=== PATIENT | male | born 1940 ===

== ENCOUNTER 2017-06-23 17:22 | Inpatient (IN) | payer MEDICARE, OTHER ==
[2017-06-23] MEDS ORDERED: Albuterol-Ipratrop 3 mg / 0.5 (3 ml) UD ONE (17:37)
[2017-06-23] MEDS ORDERED: Albuterol-Ipratrop 3 mg / 0.5 (3 ml) UD INH STA (17:47)
[2017-06-23 17:54] LABS: ABG ALLEN TEST YES; ARTERIAL BLOOD GAS HCO3 23.8 mmol/L (21-28); ARTERIAL BLOOD GAS O2 SAT 100.3 % (95-98); ARTERIAL BLOOD GAS PCO2 35 mm/Hg (35-45); ARTERIAL BLOOD GAS PH 7.42 (7.35-7.45); ARTERIAL BLOOD GAS PO2 81 mm/Hg (80-100); ARTERIAL BLOOD GAS TCO2 23.8 mmol/L (22-28)
--- NOTE | 2017-06-23 17:56 | ED PDOC ---
HPI: SOB/CHF/COPD Time Seen by Provider: 06/23/17 17:30 Chief Complaint (Nursing): Respiratory Distress Chief Complaint (Provider): Cough and Shortness of Breath History Per: Patient History/Exam Limitations: no limitations Onset/Duration Of Symptoms: Mins Current Symptoms Are (Timing): Still Present Additional Complaint(s): 76 year old male with a past medical history of hyperlipidemia, hypertension and diabetes presents to the ED complaining of worsening cough and shortness of breath x3 days. The patient states that his abdomen is now getting sore from the constant coughing. He states that his shortness of breath is worse with exertion. Denies fever, hemoptysis, rhinnorhea, chest pain and leg swelling. Patient does note some phlegm that is green in color. PMD: Samuel Pritchett Past Medical History Reviewed: Historical Data, Nursing Documentation, Vital Signs Vital Signs: Last Vital Signs Temp 97.5 F L 06/23/17 17:27 Pulse 73 06/23/17 20:04 Resp 27 H 06/23/17 20:04 BP 107/67 06/23/17 20:04 Pulse Ox 99 06/23/17 20:04 - Medical History PMH: Atrial Fibrillation (has AICD), CAD, Cardia Arrhythmia, CHF, Diabetes, HTN , Hypercholesterolemia Denies: HIV, Chronic Kidney Disease - Surgical History Surgical History: Pacemaker (2001) Other surgeries: exploratory laparotomy; ankle surgery - Family History Family History: States: Hypertension - Home Medications Home Medications: Ambulatory Orders Medication Instructions Recorded Dronedarone HCl [Multaq] 400 mg PO BID 09/29/14 Ferrous Sulfate 325 mg PO BID 09/29/14 Linagliptin [Tradjenta] 5 mg PO DAILY 09/29/14 Enalapril Maleate [Vasotec] 2.5 mg PO DAILY #0 tab 09/30/14 Folic Acid 1 tab PO DAILY 09/19/15 Aspirin [Ecotrin] 81 mg PO DAILY 08/30/16 Carvedilol [Coreg] 12.5 mg PO Q12H 08/30/16 Levocetirizine Dihydrochloride 5 mg PO DAILY 08/30/16 [Xyzal] [id number] Ethyl Esters 1 GM 2 gm PO BID 08/30/16 [Lovaza] Furosemide [Lasix] 20 mg PO BID #0 08/31/16 - Allergies Allergies/Adverse Reactions: Allergies Allergy/AdvReac Type Severity Reaction Status Date / Time No Known Allergies Allergy Verified 08/30/16 09:10 Review of Systems ROS Statement: Except As Marked, All Systems Reviewed And Found Negative (and as pe rHPI) Constitutional: Negative for: Fever ENT: Negative for: Nose Discharge Cardiovascular: Negative for: Chest Pain Respiratory: Positive for: Cough (w/ green phlegm), Shortness of Breath. Negative for: Hemoptysis Physical Exam - Reviewed Nursing Documentation Reviewed: Yes Vital Signs Reviewed: Yes - Physical Exam Appears: Positive for: Non-toxic, In Acute Distress Head Exam: Positive for: ATRAUMATIC, NORMOCEPHALIC Skin: Positive for: Warm, Dry, Pallor Eye Exam: Positive for: EOMI, PERRL ENT: Positive for: Pharynx Is (clear with tacky mucus membranes) Neck: Positive for: Painless ROM, Supple Cardiovascular/Chest: Positive for: Irregularly Irregular. Negative for: Murmur Respiratory: Positive for: Decreased Breath Sounds (bilateral bases), Accessory Muscle Use, Wheezing, Respiratory Distress Gastrointestinal/Abdominal: Positive for: Bowel Sounds, Soft. Negative for: Tenderness Back: Positive for: Normal Inspection. Negative for: Decreased ROM Extremity: Positive for: Normal ROM. Negative for: Pedal Edema, Calf Tenderness Lymphatic: Negative for: Adenopathy Neurologic/Psych: Positive for: Alert. Negative for: Motor/Sensory Deficits - Laboratory Results Result Diagrams: 06/23/17 18:39 06/23/17 18:39 - ECG ECG Rhythm: Positive for: Atrial Fibrillation, Atrial Paced (intermittently) O2 Sat by Pulse Oximetry: 100 (RA) Pulse Ox Interpretation: Normal - Radiology X-Ray Interpretation: Infiltrates (RUL), Cardiomegaly - Progress Condition: Improving,but remains with symptoms - Physician Consult Information Physician Contacted: Roni Manzanares - Critical Care Total Time (In Min): 30 Documented Critical Care: Time excludes all time spent performint seperately billable procedures Medical Decision Making Medical Decision Makin Initial Impression 76 y/o male presenting with shortness of breath and cough Differentials: ACS, CHF, Pneumonia, Bronchitis, Anemia. Initial Plan: * Type and screen * ABG * EKG * B-Type Natriuretic * Magnesium * CMP * Phosphorous * Troponin * Troponin Q8H * CBC * Partial thromboplastin * Prothrombin Timesdf * CXR Albuterol 9mL INH * Solu-Medrol 125mg IVP * Blood Culture * Accucheck * Peak Flow * Influenza A B * Reevaluation 1924 On reeval pt is feeling a little better after nebulizer treatment and solumedrol. coughed up large amount of yellow phlegm while in ER. Lab work indicates acute renal insufficiency and hyponatremia and markedly elevated BNP Daughter in the ER who now reports that the patient was seen by his PMD 1 week ago and told that his potassium was high at that time he was given a liquid medication to decrease the potassium (? kayexalate) however patient was not told he had any new kidney dysfunction. Patient needs to be hospitalized for pneumonia and placed in the ICU for multiple comorbidities. Discussed with Dr. Pelaez (hospitalist) Documented by Charlotte Sauceda acting as a scribe for Romina Caba MD. All medical record entries made by the Scribe were at my direction and personally dictated by me. I have reviewed the chart and agree that the record accurately reflects my personal performance of the history, physical exam, medical decision making, and the department course for this patient. I have also personally directed, reviewed, and agree with the discharge instructions and disposition. Disposition - Clinical Impression Clinical Impression: Anemia, CHF exacerbation, Renal insufficiency, Pneumonia Counseled Patient/Family Regarding: Studies Performed, Diagnosis - Disposition Disposition Time: 18:00 Condition: CRITICAL - Pt Status Changed To: Hospital Disposition Of: Inpatient - Admit Certification Admit to Inpatient:: After my assessment, the patient will require hospitalization for at least two midnights. This is because of the severity of symptoms shown, intensity of services needed, and/or the medical risk in this patient being treated as an outpatient. - POA Present On Arrival: None
[2017-06-23] MEDS ORDERED: cefTRIAXone IV 1 gm in Dextros 50 ML IVPB ONE (18:40)
[2017-06-23] MEDS ORDERED: cefTRIAXone IV 1 gm in Dextros 50 ML IVPB STA (18:45)
[2017-06-23 18:46] LABS: BASO % 0.2 % (0.0-2.0); EOS % 0.4 % (0.0-4.0); LYMPH # 0.5 K/uL (1.0-4.3); MEAN CELL VOLUME 90.4 fl (80.0-94.0); MEAN CORPUSCULAR HEMOGLOBIN 29.7 pg (27.0-31.0); MEAN CORPUSCULAR HGB CONC 32.9 g/dL (33.0-37.0); MEAN PLATELET VOLUME 11.5 fl (7.2-11.7); MONO % 10.4 % (0.0-10.0); NEUT # 8.1 K/uL (1.8-7.0); NRBC % 0.2 % (0.0-0.0); PLATELET COUNT 140 K/uL (130-400); RBC 3.36 Mil/uL (4.40-5.90); RED CELL DISTRIBUTION WIDTH 14.5 % (11.5-14.5); WHITE BLOOD COUNT 9.7 K/uL (4.8-10.8)
[2017-06-23] MEDS ORDERED: Sodium Chloride 0.9% 250 ML IV STA (18:47)
[2017-06-23 19:05] LABS: PROTHROMBIN TIME 14.7 Seconds (9.8-13.1)
[2017-06-23 19:06] LABS: INR 1.3 (0.9-1.2)
[2017-06-23 19:14] LABS: TROPONIN I 0.048 ng/mL (0.00-0.120)
[2017-06-23 19:15] LABS: ALB/GLOB RATIO 1.1 (1.0-2.1); ALBUMIN 3.8 g/dL (3.5-5.0); CALCIUM 8.8 mg/dL (8.4-10.2); MAGNESIUM 2.5 MG/DL (1.6-2.3)
[2017-06-23 19:36] LABS: LYMPHOCYTE 4 % (20-50); MONOCYTE 11 % (0-10); NEUTROPHIL 85 % (42-75); TOTAL CELLS COUNTED 100
[2017-06-23 19:37] LABS: HYPOCHROMIC SLIGHT; PLATELET ESTIMATE NORMAL (NORMAL)
[2017-06-23 19:38] LABS: POLYCHROMIC SLIGHT; TARGET CELLS SLIGHT
[2017-06-23] MEDS ORDERED: Sodium Chloride 3% for Inhalation 4 ML VIAL.NEB IH PRN (20:44)
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
[2017-06-23] MEDS: Sodium Chloride 0.9% 1,000 ML IV SCH (22:00)
--- NOTE | 2017-06-23 23:24 | PCM.PROC ---
Procedures Attestation:: I certify that I have explained the specified Operation(s) or Procedure(s), risks, benefits and reasonable alternatives to the Patient and/or other person responsible. The opportunity was given to ask questions and all questions answered - Central Line Placement Right Femoral Triple Lumen Catheter Aseptic technique was employed throughout the procedure: Hand Hygiene done prior to procedure, Full sterile barriers (mask, hair cover, sterile gown, sterile gloves), Full body sterile drape, Chloraprep Antiseptic: 2 minute prep for Femoral CVP Time Out Performed: No Pt. Placed on Pulse Ox Monitor: Yes Central Line Prep: Chlorhexidine-Alcohol Combination Local Anesthesia Used: Lidocaine 1% Amount of Anesthesia Used (mls): 5 Central Line Lumen Inserted: triple Central Line Length: 20 cm Post Procedure: Sutured in Place, Sterile Dressing Applied Secured by: Suture Post procedure dressing: Clear vapor permeable Post Procedure X-Ray: No Patient Tolerated Procedure: Well, No Complications Immediate Complications: None
--- NOTE | 2017-06-23 23:36 | CP.PCM.PN ---
Subjective - Date & Time of Evaluation Date of Evaluation: 06/23/17 Time of Evaluation: 23:36 - Subjective Subjective: Patient admitted with acute on chronic CHF now with BP 70/36mmHg and HR of 86/ min He is awake alert with SOB, no chest pain. -Lung with diffuse inspiratory rales at both lung [place] I&P #. Cardiogenic Shock with Acute on chronic CHF - Start Dobutamine Drip - Will add Lasix when the BP increases - continue present treatment - A Femoral TLC will be placed for the administration of the Dobutrex Critical care time 10 minutes Joshua Patterson MD Objective - Vital Signs/Intake and Output Vital Signs (last 24 hours): Temp Pulse Resp BP Pulse Ox 97.5 F L 73 27 H 107/67 100 06/23/17 17:27 06/23/17 20:04 06/23/17 20:04 06/23/17 20:04 06/23/17 22:50 - Medications Medications: Current Medications Acetaminophen (Tylenol 325mg Tab) 650 mg PO Q6H PRN PRN Reason: Pain, Mild (1-3) Acetaminophen (Tylenol 325mg Tab) 650 mg PO Q6H PRN PRN Reason: Fever >100.4 F Albuterol/Ipratropium (Duoneb 3 Mg/0.5 Mg (3 Ml) Ud) 3 ml INH Q6H [facility] Aspirin (Ecotrin) 81 mg PO DAILY [facility] Heparin Sodium (Porcine) (Heparin) 5,000 units SC Q8 DENNIS PRN Reason: Protocol Azithromycin 500 mg/ Sodium (Chloride) 250 mls @ 125 mls/hr IVPB DAILY [facility] Sodium Chloride (Sodium Chloride 0.9%) 1,000 mls @ 70 mls/hr IV .[id number] [facility] Last Admin: 06/23/17 22:00 Dose: 70 mls/hr Ceftriaxone Sodium 1 gm/ (Sodium Chloride) 100 mls @ 100 mls/hr IVPB DAILY [facility] PRN Reason: Protocol Dobutamine HCl/Dextrose (Dobutamine/Dextrose 5% 500mg/250ml) 500 mg in 250 mls @ 6.464 mls/hr IV .Q24H DENNIS; 2.5 MCG/KG/MIN PRN Reason: Protocol Loratadine (Claritin) 10 mg PO DAILY [facility] Methylprednisolone (Solu-Medrol) 60 mg IV 0100,0900,1700 [facility] Pantoprazole Sodium (Protonix Ec Tab) 40 mg PO DAILY [facility] - Labs Labs: 06/23/17 18:39 06/23/17 18:39 PT 14.7 Seconds (9.8-13.1) H 06/23/17 18:39 INR 1.3 (0.9-1.2) H 06/23/17 18:39 APTT 25.0 Seconds (25.6-37.1) L 06/23/17 18:39
[2017-06-23] MEDS: DOBUTamine 500mg/250ml D5W 500 MG/250 ML BAG IV SCH (23:38)
[2017-06-24] MEDS ORDERED: methylPREDNISolone 60 MG in Sodium Chloride 0.9% 50 ML IVPB SCH (01:00)
[2017-06-24] MEDS: Albuterol-Ipratrop 3 mg / 0.5 (3 ml) UD INH SCH ×4 (01:05→20:16)
[2017-06-24 06:59] LABS: HEMOGLOBIN 9.5 g/dL (12.0-18.0); MEAN CELL VOLUME 91.5 fl (80.0-94.0); MEAN CORPUSCULAR HEMOGLOBIN 29.4 pg (27.0-31.0); MEAN CORPUSCULAR HGB CONC 32.2 g/dL (33.0-37.0); RBC 3.23 Mil/uL (4.40-5.90); RED CELL DISTRIBUTION WIDTH 14.3 % (11.5-14.5)
[2017-06-24 07:07] LABS: CALCIUM 8.3 mg/dL (8.4-10.2); MAGNESIUM 2.5 MG/DL (1.6-2.3)
[2017-06-24] MEDS: Pantoprazole 40 mg EC Tab PO SCH (08:26)
[2017-06-24] MEDS ORDERED: Azithromycin 500 MG in Sodium Chloride 0.9% 250 ML IVPB SCH (09:00)
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
--- NOTE | 2017-06-24 11:01 | CP.PCM.PN ---
Subjective - Date & Time of Evaluation Date of Evaluation: 06/24/17 Time of Evaluation: 10:45 - Subjective Subjective: No fever Hypotensive- on Dobutamine drip SOB better + cough denies CP no abd pain Objective - Vital Signs/Intake and Output Vital Signs (last 24 hours): Temp Pulse Resp BP Pulse Ox 97.8 F 93 H 19 92/52 L 93 L 06/24/17 08:00 06/24/17 10:00 06/24/17 10:00 06/24/17 10:00 06/24/17 10:00 Intake and Output: 06/24/17 06/24/17 06:59 18:59 Intake Total 575 550 Output Total 150 Balance 575 400 - Medications Medications: Current Medications Acetaminophen (Tylenol 325mg Tab) 650 mg PO Q6H PRN PRN Reason: Pain, Mild (1-3) Acetaminophen (Tylenol 325mg Tab) 650 mg PO Q6H PRN PRN Reason: Fever >100.4 F Albuterol/Ipratropium (Duoneb 3 Mg/0.5 Mg (3 Ml) Ud) 3 ml INH Q6H [facility] Last Admin: 06/24/17 07:21 Dose: 3 ml Aspirin (Ecotrin) 81 mg PO DAILY [facility] Last Admin: 06/24/17 08:27 Dose: 81 mg Heparin Sodium (Porcine) (Heparin) 5,000 units SC Q8 [facility] PRN Reason: Protocol Last Admin: 06/24/17 08:27 Dose: 5,000 units Azithromycin 500 mg/ Sodium (Chloride) 250 mls @ 125 mls/hr IVPB DAILY [facility] Sodium Chloride (Sodium Chloride 0.9%) 1,000 mls @ 70 mls/hr IV .[id number] [facility] Last Admin: 06/23/17 22:00 Dose: 70 mls/hr Ceftriaxone Sodium 1 gm/ (Sodium Chloride) 100 mls @ 100 mls/hr IVPB DAILY [facility] PRN Reason: Protocol Dobutamine HCl/Dextrose (Dobutamine/Dextrose 5% 500mg/250ml) 500 mg in 250 mls @ 6.464 mls/hr IV .Q24H [facility]; 2.5 MCG/KG/MIN PRN Reason: Protocol Last Titration: 06/24/17 05:00 Dose: 5 mcg/kg/min, 12.927 mls/hr Loratadine (Claritin) 10 mg PO DAILY [facility] Last Admin: 06/24/17 08:28 Dose: 10 mg Methylprednisolone (Solu-Medrol) 60 mg IV 0100,0900,1700 [facility] Last Admin: 06/24/17 08:29 Dose: 60 mg Pantoprazole Sodium (Protonix Ec Tab) 40 mg PO DAILY [facility] Last Admin: 06/24/17 08:26 Dose: 40 mg - Labs Labs: 06/24/17 06:00 06/24/17 06:00 PT 14.7 Seconds (9.8-13.1) H 06/23/17 18:39 INR 1.3 (0.9-1.2) H 06/23/17 18:39 APTT 25.0 Seconds (25.6-37.1) L 06/23/17 18:39 - Constitutional Appears: No Acute Distress, Chronically Ill - Head Exam Head Exam: NORMAL INSPECTION, NORMOCEPHALIC - Eye Exam Eye Exam: EOMI, Normal appearance Pupil Exam: NORMAL ACCOMODATION - ENT Exam ENT Exam: Mucous Membranes Moist, Normal External Ear Exam - Neck Exam Neck Exam: Full ROM. absent: Meningismus - Respiratory Exam Respiratory Exam: Rales, Rhonchi. absent: Wheezes, Respiratory Distress - Cardiovascular Exam Cardiovascular Exam: REGULAR RHYTHM, +S1, +S2 - GI/Abdominal Exam GI & Abdominal Exam: Soft, Normal Bowel Sounds. absent: Tenderness - Extremities Exam Extremities Exam: Full ROM, Normal Capillary Refill. absent: Calf Tenderness, Pedal Edema - Back Exam Back Exam: Full ROM. absent: CVA tenderness (L), CVA tenderness (R) - Neurological Exam Neurological Exam: Alert, Awake, CN II-XII Intact, Oriented x3 Neuro motor strength exam: Left Upper Extremity: 5, Right Upper Extremity: 5, Left Lower Extremity: 5, Right Lower Extremity: 5 - Psychiatric Exam Psychiatric exam: Normal Affect, Normal Mood - Skin Skin Exam: Dry, Normal Color, Warm Assessment and Plan - Assessment and Plan (Free Text) Assessment: This is a 75 year old male with a pmh of CAD, severe dilated cardiomyopathy with a EF of 15%, s/p AICD placement, DM, HTN, who has been having a productive cough of greenish brown sputum x 1 week, with progressively worsening dyspnea on exertion and lethargy. He felt more short of breath even at rest and so the patient was brought to the ED. In the ED, he was found to be dyspneic although was not hypoxic. His BP was on the low side, high 90's systolic. Laboratory values reveal Hg 10.0, Neutrophil count of 8.1, WBC of 9.7 , Sodium of 129, Cl of 96, BUN of 82, Cr of 2.9 with a GFR of 21. Of note, his previous renal function on 08/31/2016 was BUN/CR 30/1.6 respectively with a GFR of 51. The patient admits to decreased po fluid intake over the past week. BNP is [id number], markedly elevated. Troponin level WNL at 0.0480. CXR today reveals RUL infiltrate consistent with pneumonia. Due to his borderline hypotension with concern for sepsis and pneumonia in the setting of severe dilated cardiomyopathy, the patient is to be admitted to ICU for close monitoring and IV antibiotics, 1) Sepsis due to RUL CAP - Azithromycin/Rocephin for abx coverage of CAP - Close monitoring of vitals - BP stable at this time - Tylenol PRN for fever - F/u sputum, BCX 2) Dilated cardiomyopathy - Dobutamine drip started - Consultation with Dr. Manzanares for cardiology - EKG shows sinus arrhythmia with nonspecific ST and T wave changes in lateral leads, incomplete LBBB - Holding Multaq for now due to PATRICIA - Holding Coreg and Enalapril due to hypotension; will restart when BP improved - Continue ASA 3) Acute COPD exacerbation - Duonebs q6h ATC - Steroids, decrease to 40 mg IVPB q 8 hours - Nasal cannula 2 L PRN 4. DM Type II Acuchecks with Regular insulin sliding scale AC+HS - Monitor, alvaro while on steroids - start Levemir 10 units qhs 5) Acute worsening of preexisting CKD stage IIIA CKD prob due to prerenal azotemia -pt has low BP, also need to r/o Multaq as cause of worsening renal fxn... hold for now - Nephrology consultation 6) DVT prophylaxis - Heparin 5000 units TID SC
--- NOTE | 2017-06-24 11:11 | CARD ---
APPROVED REPORT EKG Measurement Heart [id number] <Conclusion> Atrial fibrillation Left bundle branch block Abnormal ECG
[2017-06-24] MEDS: Azithromycin 500 MG in Sodium Chloride 0.9% 250 ML IVPB SCH (11:43)
--- NOTE | 2017-06-24 13:33 | RAD ---
HISTORY: sob COMPARISON: 08/30/2016 FINDINGS: LUNGS: No infiltrate. PLEURA: No significant pleural effusion identified, no pneumothorax apparent. CARDIOVASCULAR: Mild cardiomegaly. AICD. No congestive change. OSSEOUS STRUCTURES: No significant abnormalities. VISUALIZED UPPER ABDOMEN: Normal. OTHER FINDINGS: None. IMPRESSION: No acute infiltrate.
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
[2017-06-24] MEDS: MethylPREDNISolone 40 mg Vial IV SCH (16:49)
[2017-06-24] MEDS: Insulin Lispro (humaLOG) 100 Units/ml Inj SC SCH ×2 (16:50→21:57)
[2017-06-24] MEDS: DOBUTamine 500mg/250ml D5W 500 MG/250 ML BAG IV SCH (20:00)
[2017-06-24] MEDS ORDERED: Insulin Detemir 100 Units/ml Inj SC SCH (22:00)
[2017-06-25] MEDS: MethylPREDNISolone 40 mg Vial IV SCH ×3 (00:43→17:05)
[2017-06-25] MEDS: Sodium Chloride 0.9% 1,000 ML IV SCH (00:44)
[2017-06-25] MEDS: Albuterol-Ipratrop 3 mg / 0.5 (3 ml) UD INH SCH ×2 (01:26→20:09)
[2017-06-25] MEDS: DOBUTamine 500mg/250ml D5W 500 MG/250 ML BAG IV SCH ×3 (02:39→21:33)
[2017-06-25] MEDS: Insulin Lispro (humaLOG) 100 Units/ml Inj SC SCH ×4 (06:29→21:40)
[2017-06-25 06:55] LABS: BASO % 0.1 % (0.0-2.0); HEMOGLOBIN 9.3 g/dL (12.0-18.0); LYMPH # 0.2 K/uL (1.0-4.3); LYMPH % 2.6 % (20.0-40.0); MEAN CELL VOLUME 88.7 fl (80.0-94.0); MEAN CORPUSCULAR HEMOGLOBIN 30.1 pg (27.0-31.0); MEAN CORPUSCULAR HGB CONC 33.9 g/dL (33.0-37.0); MEAN PLATELET VOLUME 11.1 fl (7.2-11.7); MONO # 0.5 K/uL (0.0-0.8); MONO % 5.5 % (0.0-10.0); NEUT # 8.3 K/uL (1.8-7.0); NEUT % 91.8 % (50.0-75.0); NRBC % 0.2 % (0.0-0.0); PLATELET COUNT 137 K/uL (130-400); RBC 3.08 Mil/uL (4.40-5.90); RED CELL DISTRIBUTION WIDTH 14.2 % (11.5-14.5); WHITE BLOOD COUNT 9.1 K/uL (4.8-10.8)
[2017-06-25 07:19] LABS: ALB/GLOB RATIO 0.9 (1.0-2.1); ALBUMIN 3.3 g/dL (3.5-5.0); CALCIUM 8.3 mg/dL (8.4-10.2)
[2017-06-25] MEDS: Pantoprazole 40 mg EC Tab PO SCH (08:19)
[2017-06-25 09:54] LABS: BANDS 2 % (0-2); LYMPHOCYTE 1 % (20-50); MONOCYTE 7 % (0-10); NEUTROPHIL 90 % (42-75); PLATELET ESTIMATE NORMAL (NORMAL); TOTAL CELLS COUNTED 100
[2017-06-25 09:55] LABS: HYPOCHROMIC SLIGHT; LARGE PLATELETS PRESENT; OVALOCYTES SLIGHT; SCHISTOCYTES SLIGHT; TEARDROP CELLS SLIGHT
[2017-06-25] MEDS: Azithromycin 500 MG in Sodium Chloride 0.9% 250 ML IVPB SCH (10:06)
--- NOTE | 2017-06-25 10:51 | CP.PCM.PN ---
Subjective - Date & Time of Evaluation Date of Evaluation: 06/25/17 Time of Evaluation: 10:45 - Subjective Subjective: No fever still with episodes of Hypotension - on Dobutamine drip still with cough SOB better no CP no palpitation no abd pain Objective - Vital Signs/Intake and Output Vital Signs (last 24 hours): Temp Pulse Resp BP Pulse Ox 97.7 F 83 17 88/47 L 96 06/25/17 08:00 06/25/17 10:00 06/25/17 10:00 06/25/17 10:00 06/25/17 10:00 Intake and Output: 06/25/17 06/25/17 06:59 18:59 Intake Total 442 628 Output Total 400 Balance 42 628 - Medications Medications: Current Medications Acetaminophen (Tylenol 325mg Tab) 650 mg PO Q6H PRN PRN Reason: Pain, Mild (1-3) Acetaminophen (Tylenol 325mg Tab) 650 mg PO Q6H PRN PRN Reason: Fever >100.4 F Albuterol/Ipratropium (Duoneb 3 Mg/0.5 Mg (3 Ml) Ud) 3 ml INH Q6H [facility] Last Admin: 06/25/17 01:26 Dose: 3 ml Aspirin (Ecotrin) 81 mg PO DAILY [facility] Last Admin: 06/25/17 10:06 Dose: 81 mg Heparin Sodium (Porcine) (Heparin) 5,000 units SC Q8 [facility] PRN Reason: Protocol Last Admin: 06/25/17 08:19 Dose: 5,000 units Azithromycin 500 mg/ Sodium (Chloride) 250 mls @ 125 mls/hr IVPB DAILY [facility] Last Admin: 06/25/17 10:06 Dose: 125 mls/hr Sodium Chloride (Sodium Chloride 0.9%) 1,000 mls @ 70 mls/hr IV .[id number] [facility] Last Admin: 06/25/17 00:44 Dose: Not Given Ceftriaxone Sodium 1 gm/ (Sodium Chloride) 100 mls @ 100 mls/hr IVPB DAILY [facility] PRN Reason: Protocol Last Admin: 06/25/17 08:20 Dose: 100 mls/hr Dobutamine HCl/Dextrose (Dobutamine/Dextrose 5% 500mg/250ml) 500 mg in 250 mls @ 6.464 mls/hr IV .Q24H [facility]; 2.5 MCG/KG/MIN PRN Reason: Protocol Last Titration: 06/25/17 10:37 Dose: 14 mcg/kg/min, 36.197 mls/hr Insulin Detemir (Levemir) 10 units SC HS [facility] Last Admin: 06/24/17 21:55 Dose: 10 u Insulin Human Lispro (Humalog) 0 units SC ACHS [facility] PRN Reason: Protocol Last Admin: 06/25/17 06:29 Dose: 4 u Loratadine (Claritin) 10 mg PO DAILY [facility] Last Admin: 06/25/17 08:19 Dose: 10 mg Methylprednisolone (Solu-Medrol) 40 mg IV 0100,0900,1700 [facility] Last Admin: 06/25/17 08:19 Dose: 40 mg Pantoprazole Sodium (Protonix Ec Tab) 40 mg PO DAILY [facility] Last Admin: 06/25/17 08:19 Dose: 40 mg - Labs Labs: 06/25/17 06:00 06/25/17 06:00 PT 14.7 Seconds (9.8-13.1) H 06/23/17 18:39 INR 1.3 (0.9-1.2) H 06/23/17 18:39 APTT 25.0 Seconds (25.6-37.1) L 06/23/17 18:39 - Constitutional Appears: No Acute Distress, Chronically Ill - Head Exam Head Exam: NORMAL INSPECTION, NORMOCEPHALIC - Eye Exam Eye Exam: EOMI, Normal appearance Pupil Exam: NORMAL ACCOMODATION - ENT Exam ENT Exam: Mucous Membranes Moist, Normal External Ear Exam - Neck Exam Neck Exam: Full ROM. absent: Meningismus - Respiratory Exam Respiratory Exam: Rales, Rhonchi. absent: Wheezes, Respiratory Distress - Cardiovascular Exam Cardiovascular Exam: REGULAR RHYTHM, +S1, +S2 - GI/Abdominal Exam GI & Abdominal Exam: Soft, Normal Bowel Sounds. absent: Tenderness - Extremities Exam Extremities Exam: Full ROM, Normal Capillary Refill. absent: Calf Tenderness, Pedal Edema - Back Exam Back Exam: Full ROM. absent: CVA tenderness (L), CVA tenderness (R) - Neurological Exam Neurological Exam: Alert, Awake, CN II-XII Intact, Oriented x3 Neuro motor strength exam: Left Upper Extremity: 5, Right Upper Extremity: 5, Left Lower Extremity: 5, Right Lower Extremity: 5 - Psychiatric Exam Psychiatric exam: Normal Affect, Normal Mood - Skin Skin Exam: Dry, Normal Color, Warm Assessment and Plan - Assessment and Plan (Free Text) Assessment: This is a 75 year old male with a pmh of CAD, severe dilated cardiomyopathy with a EF of 15%, s/p AICD placement, DM, HTN, who has been having a productive cough of greenish brown sputum x 1 week, with progressively worsening dyspnea on exertion and lethargy. He felt more short of breath even at rest and so the patient was brought to the ED. In the ED, he was found to be dyspneic although was not hypoxic. His BP was on the low side, high 90's systolic. Laboratory values reveal Hg 10.0, Neutrophil count of 8.1, WBC of 9.7 , Sodium of 129, Cl of 96, BUN of 82, Cr of 2.9 with a GFR of 21. Of note, his previous renal function on 08/31/2016 was BUN/CR 30/1.6 respectively with a GFR of 51. The patient admits to decreased po fluid intake over the past week. BNP is [id number], markedly elevated. Troponin level WNL at 0.0480. CXR today reveals RUL infiltrate consistent with pneumonia. Due to his borderline hypotension with concern for sepsis and pneumonia in the setting of severe dilated cardiomyopathy, the patient is to be admitted to ICU for close monitoring and IV antibiotics. He was started on Dobutamine drip. 1) Sepsis due to RUL CAP prob bacterial -cont Azithromycin/Rocephin for abx coverage of CAP - Close monitoring of vitals - BP stable at this time - Tylenol PRN for fever - F/u sputum, BCX 2) Dilated cardiomyopathy - pt hypotensive - Dobutamine drip started - Consultation with Dr. Manzanares for cardiology - EKG shows sinus arrhythmia with nonspecific ST and T wave changes in lateral leads, incomplete LBBB - Holding Multaq for now due to PATRICIA - Holding Coreg and Enalapril due to hypotension; will restart when BP improved - Continue ASA 3) Acute COPD exacerbation - Duonebs q6h ATC - Steroids, decrease to 30 mg IVPB q 8 hours - Nasal cannula 2 L PRN 4. DM Type II with hyperglycemia Acuchecks with Regular insulin sliding scale AC+HS - Monitor, alvaro while on steroids - Increase Levemir 15 units qhs\ 5) Acute worsening of preexisting CKD stage III CKD prob due to prerenal azotemia -pt has low BP, also need to r/o Multaq as cause of worsening renal fxn... hold for now - Nephrology consultation 6. CHF acute on chronic systolic and diastolic dysfunction - started Lasix prn - hold KARTHIK and Coreg due to hypotension 7. Hyponatremia - monitor - Nephrology consult 6) DVT prophylaxis - Heparin 5000 units TID SC
[2017-06-25 11:38] LABS: MAGNESIUM 2.6 MG/DL (1.6-2.3)
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
--- NOTE | 2017-06-25 15:27 | CP.CCUPN ---
CCU Subjective - Physician Review Events Since Last Encounter (Free Text): events overnight reviewed 06/25/17 15:27 Subjective (Free Text): Patient seen and examined at bedside. Patient denies any SOb, denies any dizziness. 06/25/17 15:25 CCU Objective - Vital Signs / Intake & Output Vital Signs (Last 4 hours): Vital Signs Temp Pulse Resp BP Pulse Ox 06/25/17 13:00 100 H 27 H 92/60 L 96 06/25/17 12:00 99.1 F 102 H 31 H 100/66 98 06/25/17 11:55 85 24 107/40 L 98 Intake and Output (Last 8hrs): Intake & Output 06/25/17 06/25/17 06/25/17 06:59 14:59 22:59 Intake Total 262 1068 Output Total 400 350 Balance -138 718 Weight 199 lb Intake: IV 262 558 Intake, Piggyback 350 Oral 160 Output: Urine 400 350 Urine, Voided 400 350 - Physical Exam Physical Exam Limitations: Negative for: Altered Mental Status Head: Positive for: Atraumatic, Normocephalic Mouth: Positive for: Moist Mucous Membranes Neck: Positive for: Normal Range of Motion Cardiovascular: Positive for: Normal S1, S2 Abdomen: Positive for: Normal Bowel Sounds. Negative for: Tenderness Upper Extremity: Positive for: Normal Inspection Lower Extremity: Positive for: Normal Inspection Neurological: Positive for: GCS=15, CN II-XII Intact, Speech Normal Psychiatric: Positive for: Oriented x 3 - Medications Active Medications: Active Medications Generic Name Dose Route Start Last Admin Trade Name Freq PRN Reason Stop Dose Admin Acetaminophen 650 mg 06/23/17 19:51 Tylenol 325mg Tab PO Q6H PRN Pain, Mild (1-3) Acetaminophen 650 mg 06/23/17 19:51 Tylenol 325mg Tab PO Q6H PRN Fever >100.4 F Albuterol/Ipratropium 3 ml 06/23/17 20:15 06/25/17 01:26 Duoneb 3 Mg/0.5 Mg (3 Ml) Ud INH 3 ml Q6H DENNIS Administration Aspirin 81 mg 06/24/17 09:00 06/25/17 10:06 Ecotrin PO 81 mg DAILY DENNIS Administration Heparin Sodium (Porcine) 5,000 units 06/24/17 01:00 06/25/17 08:19 Heparin SC 5,000 units Q8 DENNIS Administration Protocol Azithromycin 500 mg/ Sodium 250 mls @ 125 mls/hr 06/24/17 09:00 06/25/17 10: 06 Chloride IVPB 125 mls/hr DAILY DENNIS Administration Ceftriaxone Sodium 1 gm/ 100 mls @ 100 mls/hr 06/24/17 09:00 06/25/17 08:20 Sodium Chloride IVPB 100 mls/hr DAILY DENNIS Administration Protocol Dobutamine HCl/Dextrose 500 mg in 250 mls @ 6.464 mls/hr 06/23/17 23:30 06/25 13:42 Dobutamine/Dextrose 5% 500mg/250ml IV 10 mcg/kg/min .Q24H DENNIS 25.855 mls/hr Protocol Titration 2.5 MCG/KG/MIN Insulin Detemir 16 units 06/25/17 11:02 Levemir SC HS [facility] Insulin Human Lispro 0 units 06/24/17 16:30 06/25/17 11:37 Humalog SC 4 u ACHS [facility] Administration Protocol Loratadine 10 mg 06/24/17 09:00 06/25/17 08:19 Claritin PO 10 mg DAILY DENNIS Administration Methylprednisolone 30 mg 06/25/17 11:01 Solu-Medrol IV 0100,0900,1700 [facility] Pantoprazole Sodium 40 mg 06/24/17 09:00 06/25/17 08:19 Protonix Ec Tab PO 40 mg DAILY DENNIS Administration - Patient Studies Lab Studies: Microbiology Studies 06/23/17 12:10 Gram Stain - Final Sputum 06/23/17 18:30 Blood Culture - Preliminary Blood NO GROWTH AFTER 24 HOURS 06/23/17 17:57 Blood Culture - Preliminary Blood NO GROWTH AFTER 24 HOURS Lab Studies 06/25/17 06/25/17 06/25/17 Range/Units 11:26 11:04 06:00 WBC (4.8-10.8) K/uL RBC (4.40-5.90) Mil/uL Hgb (12.0-18.0) g/dL Hct (35.0-51.0) % MCV (80.0-94.0) fl MCH (27.0-31.0) pg MCHC (33.0-37.0) g/dL RDW (11.5-14.5) % Plt Count (130-400) K/uL MPV (7.2-11.7) fl Neut % (Auto) (50.0-75.0) % Lymph % (Auto) (20.0-40.0) % [place] % (Auto) (0.0-10.0) % Eos % (Auto) (0.0-4.0) % Baso % (Auto) (0.0-2.0) % Neut # (1.8-7.0) K/uL Lymph # (1.0-4.3) K/uL [place] # (0.0-0.8) K/uL Eos # (0.0-0.7) K/uL Baso # (0.0-0.2) K/uL Neutrophils % (Manual) (42-75) % Band Neutrophils % (0-2) % Lymphocytes % (Manual) (20-50) % Monocytes % (Manual) (0-10) % Platelet Estimate (NORMAL) Large Platelets Hypochromasia (manual) Tear Drop Cells Ovalocytes Schistocytes Sodium 131 L (132-148) mmol/l Potassium 4.7 (3.6-5.0) MMOL/L Chloride 96 L (98-107) mmol/L Carbon Dioxide 23 (22-30) mmol/L Anion Gap 17 (10-20) BUN 98 H (9-20) mg/dl Creatinine 3.0 H (0.8-1.5) mg/dl Est GFR ( Amer) 25 Est GFR (Non-Af Amer) 20 POC Glucose (mg/dL) 212 H (65-110) mg/dL Random Glucose 183 H (75-110) mg/dL Calcium 8.3 L (8.4-10.2) mg/dL Phosphorus 4.5 (2.5-4.5) mg/dl Magnesium 2.6 H (1.6-2.3) MG/DL Total Bilirubin 0.7 (0.2-1.3) mg/dl AST 34 (17-59) U/L ALT 54 (21-72) U/L Alkaline Phosphatase 71 (38-126) U/L NT-Pro-B Natriuret Pep 47745 H (0-900) pg/ml Total Protein 6.9 (6.3-8.2) G/DL Albumin 3.3 L (3.5-5.0) g/dL Globulin 3.6 (2.2-3.9) gm/dL Albumin/Globulin Ratio 0.9 L (1.0-2.1) 06/25/17 06/25/17 06/24/17 Range/Units 06:00 04:47 21:41 WBC 9.1 (4.8-10.8) K/uL RBC 3.08 L (4.40-5.90) Mil/uL Hgb 9.3 L (12.0-18.0) g/dL Hct 27.3 L (35.0-51.0) % MCV 88.7 D (80.0-94.0) fl MCH 30.1 (27.0-31.0) pg MCHC 33.9 (33.0-37.0) g/dL RDW 14.2 (11.5-14.5) % Plt Count 137 (130-400) K/uL MPV 11.1 (7.2-11.7) fl Neut % (Auto) 91.8 H (50.0-75.0) % Lymph % (Auto) 2.6 L (20.0-40.0) % [place] % (Auto) 5.5 (0.0-10.0) % Eos % (Auto) 0.0 (0.0-4.0) % Baso % (Auto) 0.1 (0.0-2.0) % Neut # 8.3 H (1.8-7.0) K/uL Lymph # 0.2 L (1.0-4.3) K/uL [place] # 0.5 (0.0-0.8) K/uL Eos # 0.0 (0.0-0.7) K/uL Baso # 0.0 (0.0-0.2) K/uL Neutrophils % (Manual) 90 H (42-75) % Band Neutrophils % 2 (0-2) % Lymphocytes % (Manual) 1 L (20-50) % Monocytes % (Manual) 7 (0-10) % Platelet Estimate Normal (NORMAL) Large Platelets Present Hypochromasia (manual) Slight Tear Drop Cells Slight Ovalocytes Slight Schistocytes Slight Sodium (132-148) mmol/l Potassium (3.6-5.0) MMOL/L Chloride (98-107) mmol/L Carbon Dioxide (22-30) mmol/L Anion Gap (10-20) BUN (9-20) mg/dl Creatinine (0.8-1.5) mg/dl Est GFR ( Amer) Est GFR (Non-Af Amer) POC Glucose (mg/dL) 208 H 228 H (65-110) mg/dL Random Glucose (75-110) mg/dL Calcium (8.4-10.2) mg/dL Phosphorus (2.5-4.5) mg/dl Magnesium (1.6-2.3) MG/DL Total Bilirubin (0.2-1.3) mg/dl AST (17-59) U/L ALT (21-72) U/L Alkaline Phosphatase (38-126) U/L NT-Pro-B Natriuret Pep (0-900) pg/ml Total Protein (6.3-8.2) G/DL Albumin (3.5-5.0) g/dL Globulin (2.2-3.9) gm/dL Albumin/Globulin Ratio (1.0-2.1) 06/24/17 Range/Units 16:09 WBC (4.8-10.8) K/uL RBC (4.40-5.90) Mil/uL Hgb (12.0-18.0) g/dL Hct (35.0-51.0) % MCV (80.0-94.0) fl MCH (27.0-31.0) pg MCHC (33.0-37.0) g/dL RDW (11.5-14.5) % Plt Count (130-400) K/uL MPV (7.2-11.7) fl Neut % (Auto) (50.0-75.0) % Lymph % (Auto) (20.0-40.0) % [place] % (Auto) (0.0-10.0) % Eos % (Auto) (0.0-4.0) % Baso % (Auto) (0.0-2.0) % Neut # (1.8-7.0) K/uL Lymph # (1.0-4.3) K/uL [place] # (0.0-0.8) K/uL Eos # (0.0-0.7) K/uL Baso # (0.0-0.2) K/uL Neutrophils % (Manual) (42-75) % Band Neutrophils % (0-2) % Lymphocytes % (Manual) (20-50) % Monocytes % (Manual) (0-10) % Platelet Estimate (NORMAL) Large Platelets Hypochromasia (manual) Tear Drop Cells Ovalocytes Schistocytes Sodium (132-148) mmol/l Potassium (3.6-5.0) MMOL/L Chloride (98-107) mmol/L Carbon Dioxide (22-30) mmol/L Anion Gap (10-20) BUN (9-20) mg/dl Creatinine (0.8-1.5) mg/dl Est GFR ( Amer) Est GFR (Non-Af Amer) POC Glucose (mg/dL) 318 H (65-110) mg/dL Random Glucose (75-110) mg/dL Calcium (8.4-10.2) mg/dL Phosphorus (2.5-4.5) mg/dl Magnesium (1.6-2.3) MG/DL Total Bilirubin (0.2-1.3) mg/dl AST (17-59) U/L ALT (21-72) U/L Alkaline Phosphatase (38-126) U/L NT-Pro-B Natriuret Pep (0-900) pg/ml Total Protein (6.3-8.2) G/DL Albumin (3.5-5.0) g/dL Globulin (2.2-3.9) gm/dL Albumin/Globulin Ratio (1.0-2.1) Laboratory Results - last 24 hr 06/24/17 06/24/17 06/25/17 16:09 21:41 04:47 WBC RBC Hgb Hct MCV MCH MCHC RDW Plt Count MPV Neut % (Auto) Lymph % (Auto) [place] % (Auto) Eos % (Auto) Baso % (Auto) Neut # Lymph # [place] # Eos # Baso # Neutrophils % (Manual) Band Neutrophils % Lymphocytes % (Manual) Monocytes % (Manual) Platelet Estimate Large Platelets Hypochromasia (manual) Tear Drop Cells Ovalocytes Schistocytes Sodium Potassium Chloride Carbon Dioxide Anion Gap BUN Creatinine Est GFR ( Amer) Est GFR (Non-Af Amer) POC Glucose (mg/dL) 318 H 228 H 208 H Random Glucose Calcium Phosphorus Magnesium Total Bilirubin AST ALT Alkaline Phosphatase NT-Pro-B Natriuret Pep Total Protein Albumin Globulin Albumin/Globulin Ratio 06/25/17 06/25/17 06/25/17 06:00 06:00 11:04 WBC 9.1 RBC 3.08 L Hgb 9.3 L Hct 27.3 L MCV 88.7 D MCH 30.1 MCHC 33.9 RDW 14.2 Plt Count 137 MPV 11.1 Neut % (Auto) 91.8 H Lymph % (Auto) 2.6 L [place] % (Auto) 5.5 Eos % (Auto) 0.0 Baso % (Auto) 0.1 Neut # 8.3 H Lymph # 0.2 L [place] # 0.5 Eos # 0.0 Baso # 0.0 Neutrophils % (Manual) 90 H Band Neutrophils % 2 Lymphocytes % (Manual) 1 L Monocytes % (Manual) 7 Platelet Estimate Normal Large Platelets Present Hypochromasia (manual) Slight Tear Drop Cells Slight Ovalocytes Slight Schistocytes Slight Sodium 131 L Potassium 4.7 Chloride 96 L Carbon Dioxide 23 Anion Gap 17 BUN 98 H Creatinine 3.0 H Est GFR ( Amer) 25 Est GFR (Non-Af Amer) 20 POC Glucose (mg/dL) Random Glucose 183 H Calcium 8.3 L Phosphorus 4.5 Magnesium 2.6 H Total Bilirubin 0.7 AST 34 ALT 54 Alkaline Phosphatase 71 NT-Pro-B Natriuret Pep 85197 H Total Protein 6.9 Albumin 3.3 L Globulin 3.6 Albumin/Globulin Ratio 0.9 L 06/25/17 11:26 WBC RBC Hgb Hct MCV MCH MCHC RDW Plt Count MPV Neut % (Auto) Lymph % (Auto) [place] % (Auto) Eos % (Auto) Baso % (Auto) Neut # Lymph # [place] # Eos # Baso # Neutrophils % (Manual) Band Neutrophils % Lymphocytes % (Manual) Monocytes % (Manual) Platelet Estimate Large Platelets Hypochromasia (manual) Tear Drop Cells Ovalocytes Schistocytes Sodium Potassium Chloride Carbon Dioxide Anion Gap BUN Creatinine Est GFR ( Amer) Est GFR (Non-Af Amer) POC Glucose (mg/dL) 212 H Random Glucose Calcium Phosphorus Magnesium Total Bilirubin AST ALT Alkaline Phosphatase NT-Pro-B Natriuret Pep Total Protein Albumin Globulin Albumin/Globulin Ratio Fingerstick Blood Sugar Results: 212 Critical Care Progress Note - Nutrition Nutrition: Nutrition Category Date Time Status Heart Healthy Diet [DIET] Diets 06/23/17 Breakfast Active Assessment/Plan - Assessment and Plan (Free Text) Plan: Sepsis: ?Lung: continue abx, check procalcitoni, f/u sputum, BCX -Dilated cardiomyopathy: continue dobutamine, obtain cardiology input -Chronic COPD: no active bleeding, continue bronchodilators - Type 2 DM, BGM AC/HS -Acute on chronic Kidney Injury :cardiorenal syndrome -continue DVT prophylaxis -Patient tolerating oral diet -d/c femoral line when PICC in place d/w nursing - Date & Time Date: 06/25/17 Time: 15:33
[2017-06-25 19:12] LABS: SQUAMOUS EPITHIAL 1 /hpf (0-5); URINE BILIRUBIN NEGATIVE (NEGATIVE); URINE BLOOD NEGATIVE (NEGATIVE); URINE CLARITY SLIGHTY-CLOUDY (Clear); URINE COLOR YELLOW (YELLOW); URINE GLUCOSE (UA) NEG (Normal); URINE LEUKOCYTE ESTERASE TRACE Leu/uL (Negative); URINE NITRATE NEGATIVE (NEGATIVE); URINE PROTEIN NEGATIVE (NEGATIVE)
[2017-06-25] MEDS: Insulin Detemir 100 Units/ml Inj SC SCH (21:40)
[2017-06-26] MEDS: MethylPREDNISolone 40 mg Vial IV SCH ×3 (00:20→16:41)
[2017-06-26] MEDS: Albuterol-Ipratrop 3 mg / 0.5 (3 ml) UD INH SCH ×4 (01:00→19:14)
[2017-06-26 05:47] LABS: HEMOGLOBIN 9.7 g/dL (12.0-18.0); MEAN CELL VOLUME 89.2 fl (80.0-94.0); MEAN CORPUSCULAR HEMOGLOBIN 30.4 pg (27.0-31.0); MEAN CORPUSCULAR HGB CONC 34.1 g/dL (33.0-37.0); RBC 3.2 Mil/uL (4.40-5.90); RED CELL DISTRIBUTION WIDTH 14.4 % (11.5-14.5); WHITE BLOOD COUNT 9.9 K/uL (4.8-10.8)
[2017-06-26 06:26] LABS: CALCIUM 8.2 mg/dL (8.4-10.2)
[2017-06-26] MEDS: Insulin Lispro (humaLOG) 100 Units/ml Inj SC SCH ×4 (06:57→22:31)
--- NOTE | 2017-06-26 08:09 | CP.CCUPN ---
CCU Subjective - Physician Review Subjective (Free Text): 06/26/17 11:43 The patient was seen and examined by me at the bedside with the ICU team, Medical records reviewed and Management issues were discussed and formulated with the house staff. 76 Years old Male with PMHx of HTN, Hypercholesterolemia, DM, CAD, dilated cardiomyopathy S/P AICD and paroxysmal atrial fibrillation who came to the hospital with complaints of cough productive of sputum, also found to have acute kidney injury with pre-renal azotemia. Sitting comfortable in chair, NAD Clinically and hemodynamically improved Off dobutamine since 6AM Patient denies any SOB/CP, denies any dizziness. Afebrile, NSR on the monitor Events reviewed CCU Objective - Vital Signs / Intake & Output Vital Signs (Last 4 hours): Vital Signs Temp Pulse Resp BP Pulse Ox 06/26/17 07:00 99 H 18 151/63 H 96 06/26/17 06:00 97.4 F L 77 18 108/69 99 06/26/17 05:00 114 H 23 136/87 100 Intake and Output (Last 8hrs): Intake & Output 06/25/17 06/26/17 06/26/17 22:59 06:59 14:59 Intake Total 272 337 Output Total 300 450 Balance -28 -113 Weight 202 lb Intake: IV 172 22 Intake, Piggyback 75 Oral 100 240 Output: Urine 300 450 Urine, Voided 300 450 Other: # Voids Urine, Voided 1 - Physical Exam Head: Positive for: Atraumatic, Normocephalic Mouth: Positive for: Moist Mucous Membranes Neck: Positive for: Normal Range of Motion Cardiovascular: Positive for: Normal S1, S2 Abdomen: Positive for: Normal Bowel Sounds. Negative for: Tenderness Upper Extremity: Positive for: Normal Inspection Lower Extremity: Positive for: Normal Inspection Neurological: Positive for: GCS=15, CN II-XII Intact, Speech Normal Psychiatric: Positive for: Oriented x 3 - Medications Active Medications: Active Medications Generic Name Dose Route Start Last Admin Trade Name Freq PRN Reason Stop Dose Admin Acetaminophen 650 mg 06/23/17 19:51 Tylenol 325mg Tab PO Q6H PRN Pain, Mild (1-3) Acetaminophen 650 mg 06/23/17 19:51 Tylenol 325mg Tab PO Q6H PRN Fever >100.4 F Albuterol/Ipratropium 3 ml 06/23/17 20:15 06/26/17 01:00 Duoneb 3 Mg/0.5 Mg (3 Ml) Ud INH 3 ml Q6H DENNIS Administration Aspirin 81 mg 06/24/17 09:00 06/25/17 10:06 Ecotrin PO 81 mg DAILY DENNIS Administration Heparin Sodium (Porcine) 5,000 units 06/24/17 01:00 06/26/17 00:20 Heparin SC 5,000 units Q8 DENNIS Administration Protocol Azithromycin 500 mg/ Sodium 250 mls @ 125 mls/hr 06/24/17 09:00 06/25/17 10: 06 Chloride IVPB 125 mls/hr DAILY DENNIS Administration Ceftriaxone Sodium 1 gm/ 100 mls @ 100 mls/hr 06/24/17 09:00 06/25/17 08:20 Sodium Chloride IVPB 100 mls/hr DAILY DENNIS Administration Protocol Dobutamine HCl/Dextrose 500 mg in 250 mls @ 6.464 mls/hr 06/23/17 23:30 06/26 05:07 Dobutamine/Dextrose 5% 500mg/250ml IV 0 mcg/kg/min .Q24H DENNIS 0 mls/hr Protocol Titration 2.5 MCG/KG/MIN Insulin Detemir 16 units 06/25/17 11:02 06/25/17 21:40 Levemir SC 16 u HS DENNIS Administration Insulin Human Lispro 0 units 06/24/17 16:30 06/26/17 06:57 Humalog SC 6 u ACHS DENNIS Administration Protocol Loratadine 10 mg 06/24/17 09:00 06/25/17 08:19 Claritin PO 10 mg DAILY DENNIS Administration Methylprednisolone 30 mg 06/25/17 11:01 06/26/17 00:20 Solu-Medrol IV 30 mg 0100,0900,1700 DENNIS Administration Midodrine 5 mg 06/25/17 17:00 06/26/17 06:56 Proamatine PO 5 mg TID DENNIS Administration Pantoprazole Sodium 40 mg 06/24/17 09:00 06/25/17 08:19 Protonix Ec Tab PO 40 mg DAILY DENNIS Administration - Patient Studies Lab Studies: Microbiology Studies 06/23/17 06:00 MRSA Culture (Admit) - Final [place] MRSA NOT DETECTED 06/23/17 18:30 Blood Culture - Preliminary Blood NO GROWTH AFTER 48 HOURS 06/23/17 17:57 Blood Culture - Preliminary Blood NO GROWTH AFTER 48 HOURS Lab Studies 06/26/17 06/26/17 06/26/17 Range/Units 04:30 04:30 04:11 WBC 9.9 (4.8-10.8) K/uL RBC 3.20 L (4.40-5.90) Mil/uL Hgb 9.7 L (12.0-18.0) g/dL Hct 28.5 L (35.0-51.0) % MCV 89.2 (80.0-94.0) fl MCH 30.4 (27.0-31.0) pg MCHC 34.1 (33.0-37.0) g/dL RDW 14.4 (11.5-14.5) % Plt Count 136 (130-400) K/uL Neutrophils % (Manual) (42-75) % Band Neutrophils % (0-2) % Lymphocytes % (Manual) (20-50) % Monocytes % (Manual) (0-10) % Platelet Estimate (NORMAL) Large Platelets Hypochromasia (manual) Tear Drop Cells Ovalocytes Schistocytes Sodium 129 L (132-148) mmol/l Potassium 5.1 H (3.6-5.0) MMOL/L Chloride 95 L (98-107) mmol/L Carbon Dioxide 23 (22-30) mmol/L Anion Gap 16 (10-20) BUN 96 H (9-20) mg/dl Creatinine 2.6 H (0.8-1.5) mg/dl Est GFR ( Amer) 29 Est GFR (Non-Af Amer) 24 POC Glucose (mg/dL) 285 H (65-110) mg/dL Random Glucose 205 H (75-110) mg/dL Calcium 8.2 L (8.4-10.2) mg/dL Phosphorus (2.5-4.5) mg/dl Magnesium (1.6-2.3) MG/DL Urine Color (YELLOW) Urine Clarity (Clear) Urine pH (5.0-8.0) Ur Specific [place] (1.003-1.030) Urine Protein (NEGATIVE) mg/dL Urine Glucose (UA) (Normal) mg/dL Urine Ketones (NEGATIVE) mg/dL Urine Blood (NEGATIVE) Urine Nitrate (NEGATIVE) Urine Bilirubin (NEGATIVE) Urine Urobilinogen (0.2-1.0) mg/dL Ur Leukocyte Esterase (Negative) [place]/uL Urine RBC (Auto) (0-3) /hpf Urine Microscopic WBC (0-5) /hpf Ur Squamous Epith Cells (0-5) /hpf Hyaline Casts (0-2) /hpf 06/25/17 06/25/17 06/25/17 Range/Units 21:39 18:38 16:01 WBC (4.8-10.8) K/uL RBC (4.40-5.90) Mil/uL Hgb (12.0-18.0) g/dL Hct (35.0-51.0) % MCV (80.0-94.0) fl MCH (27.0-31.0) pg MCHC (33.0-37.0) g/dL RDW (11.5-14.5) % Plt Count (130-400) K/uL Neutrophils % (Manual) (42-75) % Band Neutrophils % (0-2) % Lymphocytes % (Manual) (20-50) % Monocytes % (Manual) (0-10) % Platelet Estimate (NORMAL) Large Platelets Hypochromasia (manual) Tear Drop Cells Ovalocytes Schistocytes Sodium (132-148) mmol/l Potassium (3.6-5.0) MMOL/L Chloride (98-107) mmol/L Carbon Dioxide (22-30) mmol/L Anion Gap (10-20) BUN (9-20) mg/dl Creatinine (0.8-1.5) mg/dl Est GFR ( Amer) Est GFR (Non-Af Amer) POC Glucose (mg/dL) 167 H 162 H (65-110) mg/dL Random Glucose (75-110) mg/dL Calcium (8.4-10.2) mg/dL Phosphorus (2.5-4.5) mg/dl Magnesium (1.6-2.3) MG/DL Urine Color Yellow (YELLOW) Urine Clarity Slighty-cloudy (Clear) Urine pH 5.0 (5.0-8.0) Ur Specific [place] 1.011 (1.003-1.030) Urine Protein Negative (NEGATIVE) mg/dL Urine Glucose (UA) Neg (Normal) mg/dL Urine Ketones Negative (NEGATIVE) mg/dL Urine Blood Negative (NEGATIVE) Urine Nitrate Negative (NEGATIVE) Urine Bilirubin Negative (NEGATIVE) Urine Urobilinogen 2.0 (0.2-1.0) mg/dL Ur Leukocyte Esterase Trace (Negative) Cas[place]/uL Urine RBC (Auto) 1 (0-3) /hpf Urine Microscopic WBC 2 (0-5) /hpf Ur Squamous Epith Cells 1 (0-5) /hpf Hyaline Casts 6-10 H (0-2) /hpf 06/25/17 06/25/17 06/25/17 Range/Units 11:26 11:04 06:00 WBC (4.8-10.8) K/uL RBC (4.40-5.90) Mil/uL Hgb (12.0-18.0) g/dL Hct (35.0-51.0) % MCV (80.0-94.0) fl MCH (27.0-31.0) pg MCHC (33.0-37.0) g/dL RDW (11.5-14.5) % Plt Count (130-400) K/uL Neutrophils % (Manual) 90 H (42-75) % Band Neutrophils % 2 (0-2) % Lymphocytes % (Manual) 1 L (20-50) % Monocytes % (Manual) 7 (0-10) % Platelet Estimate Normal (NORMAL) Large Platelets Present Hypochromasia (manual) Slight Tear Drop Cells Slight Ovalocytes Slight Schistocytes Slight Sodium (132-148) mmol/l Potassium (3.6-5.0) MMOL/L Chloride (98-107) mmol/L Carbon Dioxide (22-30) mmol/L Anion Gap (10-20) BUN (9-20) mg/dl Creatinine (0.8-1.5) mg/dl Est GFR ( Amer) Est GFR (Non-Af Amer) POC Glucose (mg/dL) 212 H (65-110) mg/dL Random Glucose (75-110) mg/dL Calcium (8.4-10.2) mg/dL Phosphorus 4.5 (2.5-4.5) mg/dl Magnesium 2.6 H (1.6-2.3) MG/DL Urine Color (YELLOW) Urine Clarity (Clear) Urine pH (5.0-8.0) Ur Specific [place] (1.003-1.030) Urine Protein (NEGATIVE) mg/dL Urine Glucose (UA) (Normal) mg/dL Urine Ketones (NEGATIVE) mg/dL Urine Blood (NEGATIVE) Urine Nitrate (NEGATIVE) Urine Bilirubin (NEGATIVE) Urine Urobilinogen (0.2-1.0) mg/dL Ur Leukocyte Esterase (Negative) [place]/uL Urine RBC (Auto) (0-3) /hpf Urine Microscopic WBC (0-5) /hpf Ur Squamous Epith Cells (0-5) /hpf Hyaline Casts (0-2) /hpf Laboratory Results - last 24 hr 06/25/17 06/25/17 06/25/17 06:00 11:04 11:26 WBC RBC Hgb Hct MCV MCH MCHC RDW Plt Count Neutrophils % (Manual) 90 H Band Neutrophils % 2 Lymphocytes % (Manual) 1 L Monocytes % (Manual) 7 Platelet Estimate Normal Large Platelets Present Hypochromasia (manual) Slight Tear Drop Cells Slight Ovalocytes Slight Schistocytes Slight Sodium Potassium Chloride Carbon Dioxide Anion Gap BUN Creatinine Est GFR ( Amer) Est GFR (Non-Af Amer) POC Glucose (mg/dL) 212 H Random Glucose Calcium Phosphorus 4.5 Magnesium 2.6 H Urine Color Urine Clarity Urine pH Ur Specific [place] Urine Protein Urine Glucose (UA) Urine Ketones Urine Blood Urine Nitrate Urine Bilirubin Urine Urobilinogen Ur Leukocyte Esterase Urine RBC (Auto) Urine Microscopic WBC Ur Squamous Epith Cells Hyaline Casts 06/25/17 06/25/17 06/25/17 16:01 18:38 21:39 WBC RBC Hgb Hct MCV MCH MCHC RDW Plt Count Neutrophils % (Manual) Band Neutrophils % Lymphocytes % (Manual) Monocytes % (Manual) Platelet Estimate Large Platelets Hypochromasia (manual) Tear Drop Cells Ovalocytes Schistocytes Sodium Potassium Chloride Carbon Dioxide Anion Gap BUN Creatinine Est GFR ( Amer) Est GFR (Non-Af Amer) POC Glucose (mg/dL) 162 H 167 H Random Glucose Calcium Phosphorus Magnesium Urine Color Yellow Urine Clarity Slighty-cloudy Urine pH 5.0 Ur Specific [place] 1.011 Urine Protein Negative Urine Glucose (UA) Neg Urine Ketones Negative Urine Blood Negative Urine Nitrate Negative Urine Bilirubin Negative Urine Urobilinogen 2.0 Ur Leukocyte Esterase Trace Urine RBC (Auto) 1 Urine Microscopic WBC 2 Ur Squamous Epith Cells 1 Hyaline Casts 6-10 H 06/26/17 06/26/17 06/26/17 04:11 04:30 04:30 WBC 9.9 RBC 3.20 L Hgb 9.7 L Hct 28.5 L MCV 89.2 MCH 30.4 MCHC 34.1 RDW 14.4 Plt Count 136 Neutrophils % (Manual) Band Neutrophils % Lymphocytes % (Manual) Monocytes % (Manual) Platelet Estimate Large Platelets Hypochromasia (manual) Tear Drop Cells Ovalocytes Schistocytes Sodium 129 L Potassium 5.1 H Chloride 95 L Carbon Dioxide 23 Anion Gap 16 BUN 96 H Creatinine 2.6 H Est GFR ( Amer) 29 Est GFR (Non-Af Amer) 24 POC Glucose (mg/dL) 285 H Random Glucose 205 H Calcium 8.2 L Phosphorus Magnesium Urine Color Urine Clarity Urine pH Ur Specific [place] Urine Protein Urine Glucose (UA) Urine Ketones Urine Blood Urine Nitrate Urine Bilirubin Urine Urobilinogen Ur Leukocyte Esterase Urine RBC (Auto) Urine Microscopic WBC Ur Squamous Epith Cells Hyaline Casts Fingerstick Blood Sugar Results: 285 Critical Care Progress Note - Extremities/Vascular Does the Patient have a Central Venous Catheter?: No Does the Patient need a Central Venous Catheter?: No Does the Patient have a Meneses Catheter?: No Does the Patient need a Meneses Catheter?: No - Nutrition Nutrition: Nutrition Category Date Time Status Consistent Carbohydrate [DIET] Diets 06/26/17 Breakfast Active Assessment/Plan (1) CAP (community acquired pneumonia) Current Visit: Yes Status: Acute Comment: Continue Azithromycin and Ceftriaxone Influenza A, B negative Cultures negative so far (2) Dilated cardiomyopathy Current Visit: No Status: Acute Comment: Patient has AICD Clinically better Continue ASA KARTHIK and BB on hold due to hypotensoin Continue ICU care for hemodynamic and Respiratory monitoring Off dobutamine Cardiology input appretiated (3) COPD (chronic obstructive pulmonary disease) Current Visit: Yes Status: Acute Comment: IV Solumedrol Albuterol/Ipratropium INH RQ6 (4) Chronic kidney disease, stage IV (severe) Current Visit: Yes Status: Acute (5) Hyponatremia Current Visit: Yes Status: Acute Comment: Samsca 15 mg x1 today (6) Atrial fibrillation Current Visit: No Status: Chronic (7) Diabetes 1.5, managed as type 2 Current Visit: No Status: Acute Comment: controlled on Tradjenta and Actos
--- NOTE | 2017-06-26 09:18 | CP.PCM.PN ---
Subjective - Date & Time of Evaluation Date of Evaluation: 06/26/17 Time of Evaluation: 09:15 - Subjective Subjective: REASON FOR VISIT: Atrial Fibrillation. INTERVAL HISTORY: The patient is evaluated in the ICU where he is resting comfortably, recumbent in bed without complaints of chest pain, dyspnea, palpitations, orthopnea or edema. He is tolerating PO intake and medical therapy. The patient remains in normal sinus rhythm and is mildly hypotensive this morning, though without symptoms. Dobutamine has been discontinued. Objective - Vital Signs/Intake and Output Vital Signs (last 24 hours): Temp Pulse Resp BP Pulse Ox 98.7 F 98 H 20 104/77 100 06/26/17 08:46 06/26/17 08:46 06/26/17 08:46 06/26/17 08:46 06/26/17 08:46 Intake and Output: 06/26/17 06/26/17 06:59 18:59 Intake Total 403 250 Output Total 650 100 Balance -247 150 - Medications Medications: Current Medications Acetaminophen (Tylenol 325mg Tab) 650 mg PO Q6H PRN PRN Reason: Pain, Mild (1-3) Acetaminophen (Tylenol 325mg Tab) 650 mg PO Q6H PRN PRN Reason: Fever >100.4 F Albuterol/Ipratropium (Duoneb 3 Mg/0.5 Mg (3 Ml) Ud) 3 ml INH Q6H [facility] Last Admin: 06/26/17 08:36 Dose: 3 ml Aspirin (Ecotrin) 81 mg PO DAILY [facility] Last Admin: 06/25/17 10:06 Dose: 81 mg Heparin Sodium (Porcine) (Heparin) 5,000 units SC Q8 [facility] PRN Reason: Protocol Last Admin: 06/26/17 00:20 Dose: 5,000 units Azithromycin 500 mg/ Sodium (Chloride) 250 mls @ 125 mls/hr IVPB DAILY [facility] Last Admin: 06/25/17 10:06 Dose: 125 mls/hr Ceftriaxone Sodium 1 gm/ (Sodium Chloride) 100 mls @ 100 mls/hr IVPB DAILY [facility] PRN Reason: Protocol Last Admin: 06/25/17 08:20 Dose: 100 mls/hr Dobutamine HCl/Dextrose (Dobutamine/Dextrose 5% 500mg/250ml) 500 mg in 250 mls @ 6.464 mls/hr IV .Q24H [facility]; 2.5 MCG/KG/MIN PRN Reason: Protocol Last Titration: 06/26/17 05:07 Dose: 0 mcg/kg/min, 0 mls/hr Insulin Detemir (Levemir) 16 units SC HS [facility] Last Admin: 06/25/17 21:40 Dose: 16 u Insulin Human Lispro (Humalog) 0 units SC ACHS [facility] PRN Reason: Protocol Last Admin: 06/26/17 06:57 Dose: 6 u Loratadine (Claritin) 10 mg PO DAILY [facility] Last Admin: 06/25/17 08:19 Dose: 10 mg Methylprednisolone (Solu-Medrol) 30 mg IV 0100,0900,1700 [facility] Last Admin: 06/26/17 00:20 Dose: 30 mg Midodrine (Proamatine) 5 mg PO TID [facility] Last Admin: 06/26/17 06:56 Dose: 5 mg Pantoprazole Sodium (Protonix Ec Tab) 40 mg PO DAILY [facility] Last Admin: 06/25/17 08:19 Dose: 40 mg - Labs Labs: 06/26/17 04:30 06/26/17 04:30 PT 14.7 Seconds (9.8-13.1) H 06/23/17 18:39 INR 1.3 (0.9-1.2) H 06/23/17 18:39 APTT 25.0 Seconds (25.6-37.1) L 06/23/17 18:39 - Constitutional Appears: Well, Non-toxic, No Acute Distress - Head Exam Head Exam: ATRAUMATIC, NORMAL INSPECTION, NORMOCEPHALIC - Eye Exam Eye Exam: Normal appearance, PERRL. absent: Periorbital swelling, Scleral icterus - ENT Exam ENT Exam: Mucous Membranes Moist, Normal Exam - Neck Exam Neck Exam: Full ROM - Respiratory Exam Respiratory Exam: Clear to Ausculation Bilateral, NORMAL BREATHING PATTERN. absent: Rales, Rhonchi, Wheezes - Cardiovascular Exam Cardiovascular Exam: Irregular Rhythm, +S1, +S2, Murmur. absent: Gallop, Rubs - GI/Abdominal Exam GI & Abdominal Exam: Soft. absent: Distended, Guarding, Tenderness - Rectal Exam Rectal Exam: Deferred - Back Exam Back Exam: NORMAL INSPECTION - Neurological Exam Neurological Exam: Alert, Awake, Oriented x3 - Psychiatric Exam Psychiatric exam: Normal Affect, Normal Mood - Skin Skin Exam: Dry, Intact, Normal Color, Warm Assessment and Plan - Assessment and Plan (Free Text) Assessment: 1.Paroxysmal atrial fibrillation, rate controlled. 2. CMP, stable. 3. HTN. 4. CKD, unchanged. Plan: 1. Continue present medical management. 2. Monitor renal function. 3. Monitor telemetry. 4. Prognosis improved.
[2017-06-26] MEDS: Pantoprazole 40 mg EC Tab PO SCH (09:37)
--- NOTE | 2017-06-26 10:34 | CP.PCM.PN ---
Subjective - Date & Time of Evaluation Date of Evaluation: 06/26/17 Time of Evaluation: 10:32 - Subjective Subjective: Patient and bed No shortness of breath No nausea or vomiting No diarrhea No chest pain Objective - Vital Signs/Intake and Output Vital Signs (last 24 hours): Temp Pulse Resp BP Pulse Ox 98.7 F 98 H 20 104/77 100 06/26/17 08:46 06/26/17 08:46 06/26/17 08:46 06/26/17 08:46 06/26/17 08:46 Intake and Output: 06/26/17 06/26/17 06:59 18:59 Intake Total 403 250 Output Total 650 100 Balance -247 150 - Medications Medications: Current Medications Acetaminophen (Tylenol 325mg Tab) 650 mg PO Q6H PRN PRN Reason: Pain, Mild (1-3) Acetaminophen (Tylenol 325mg Tab) 650 mg PO Q6H PRN PRN Reason: Fever >100.4 F Albuterol/Ipratropium (Duoneb 3 Mg/0.5 Mg (3 Ml) Ud) 3 ml INH Q6H [facility] Last Admin: 06/26/17 08:36 Dose: 3 ml Aspirin (Ecotrin) 81 mg PO DAILY [facility] Last Admin: 06/26/17 09:36 Dose: 81 mg Heparin Sodium (Porcine) (Heparin) 5,000 units SC Q8 [facility] PRN Reason: Protocol Last Admin: 06/26/17 09:36 Dose: 5,000 units Azithromycin 500 mg/ Sodium (Chloride) 250 mls @ 125 mls/hr IVPB DAILY [facility] Last Admin: 06/25/17 10:06 Dose: 125 mls/hr Ceftriaxone Sodium 1 gm/ (Sodium Chloride) 100 mls @ 100 mls/hr IVPB DAILY [facility] PRN Reason: Protocol Last Admin: 06/26/17 09:38 Dose: 100 mls/hr Dobutamine HCl/Dextrose (Dobutamine/Dextrose 5% 500mg/250ml) 500 mg in 250 mls @ 6.464 mls/hr IV .Q24H [facility]; 2.5 MCG/KG/MIN PRN Reason: Protocol Last Titration: 06/26/17 05:07 Dose: 0 mcg/kg/min, 0 mls/hr Insulin Detemir (Levemir) 16 units SC [facility] Last Admin: 06/25/17 21:40 Dose: 16 u Insulin Human Lispro (Humalog) 0 units SC ACHS [facility] PRN Reason: Protocol Last Admin: 06/26/17 06:57 Dose: 6 u Loratadine (Claritin) 10 mg PO DAILY [facility] Last Admin: 06/26/17 09:36 Dose: 10 mg Methylprednisolone (Solu-Medrol) 30 mg IV 0100,0900,1700 [facility] Last Admin: 06/26/17 09:39 Dose: 30 mg Midodrine (Proamatine) 5 mg PO TID [facility] Last Admin: 06/26/17 06:56 Dose: 5 mg Pantoprazole Sodium (Protonix Ec Tab) 40 mg PO DAILY [facility] Last Admin: 06/26/17 09:37 Dose: 40 mg - Labs Labs: 06/26/17 04:30 06/26/17 04:30 PT 14.7 Seconds (9.8-13.1) H 06/23/17 18:39 INR 1.3 (0.9-1.2) H 06/23/17 18:39 APTT 25.0 Seconds (25.6-37.1) L 06/23/17 18:39 - Constitutional Appears: No Acute Distress - ENT Exam ENT Exam: Mucous Membranes Moist - Respiratory Exam Respiratory Exam: Rhonchi, NORMAL BREATHING PATTERN. absent: Chest Wall Tenderness - Cardiovascular Exam Cardiovascular Exam: absent: Gallop, Rubs - GI/Abdominal Exam GI & Abdominal Exam: Soft, Normal Bowel Sounds - Extremities Exam Extremities Exam: absent: Calf Tenderness - Back Exam Back Exam: absent: CVA tenderness (L), CVA tenderness (R) - Neurological Exam Neurological Exam: Alert - Psychiatric Exam Psychiatric exam: Normal Affect - Skin Skin Exam: absent: Cyanosis Assessment and Plan (1) Diabetes mellitus Status: Acute (2) Dilated cardiomyopathy Status: Acute (3) Chronic kidney disease, stage IV (severe) Assessment & Plan: Persistent hyponatremia. Serum sodium around 129 and not improving in the setting of CHF with low ejection fraction Therefore we will give Samsca 15 mg. Monitor serum sodium in the next 24 hours every 8 hours. Serum sodium should not rise more than 12 mEq in the next 24 hr. CK D stage IV at the present probably worsening his previous CKD was stage III Related to cardiorenal syndrome was congestive heart failure. Diabetes mellitus as per primary team to be controlled we will check the urine for protein and blood for PTH and phosphorus. Status: Acute
--- NOTE | 2017-06-26 10:38 | CP.PCM.PN ---
Subjective - Date & Time of Evaluation Date of Evaluation: 06/26/17 Time of Evaluation: 10:15 - Subjective Subjective: Pt feels better still with SOB on exertion sl cough no CP no abd pain Dobutamine turned off at 5 am - pt started on Midodrine Objective - Vital Signs/Intake and Output Vital Signs (last 24 hours): Temp Pulse Resp BP Pulse Ox 98.7 F 98 H 20 104/77 100 06/26/17 08:46 06/26/17 08:46 06/26/17 08:46 06/26/17 08:46 06/26/17 08:46 Intake and Output: 06/26/17 06/26/17 06:59 18:59 Intake Total 403 250 Output Total 650 100 Balance -247 150 - Medications Medications: Current Medications Acetaminophen (Tylenol 325mg Tab) 650 mg PO Q6H PRN PRN Reason: Pain, Mild (1-3) Acetaminophen (Tylenol 325mg Tab) 650 mg PO Q6H PRN PRN Reason: Fever >100.4 F Albuterol/Ipratropium (Duoneb 3 Mg/0.5 Mg (3 Ml) Ud) 3 ml INH Q6H [facility] Last Admin: 06/26/17 08:36 Dose: 3 ml Aspirin (Ecotrin) 81 mg PO DAILY [facility] Last Admin: 06/26/17 09:36 Dose: 81 mg Heparin Sodium (Porcine) (Heparin) 5,000 units SC Q8 [facility] PRN Reason: Protocol Last Admin: 06/26/17 09:36 Dose: 5,000 units Azithromycin 500 mg/ Sodium (Chloride) 250 mls @ 125 mls/hr IVPB DAILY [facility] Last Admin: 06/25/17 10:06 Dose: 125 mls/hr Ceftriaxone Sodium 1 gm/ (Sodium Chloride) 100 mls @ 100 mls/hr IVPB DAILY [facility] PRN Reason: Protocol Last Admin: 06/26/17 09:38 Dose: 100 mls/hr Dobutamine HCl/Dextrose (Dobutamine/Dextrose 5% 500mg/250ml) 500 mg in 250 mls @ 6.464 mls/hr IV .Q24H [facility]; 2.5 MCG/KG/MIN PRN Reason: Protocol Last Titration: 06/26/17 05:07 Dose: 0 mcg/kg/min, 0 mls/hr Insulin Detemir (Levemir) 16 units SC HS [facility] Last Admin: 06/25/17 21:40 Dose: 16 u Insulin Human Lispro (Humalog) 0 units SC [facility] PRN Reason: Protocol Last Admin: 06/26/17 06:57 Dose: 6 u Loratadine (Claritin) 10 mg PO DAILY [facility] Last Admin: 06/26/17 09:36 Dose: 10 mg Methylprednisolone (Solu-Medrol) 30 mg IV 0100,0900,1700 [facility] Last Admin: 06/26/17 09:39 Dose: 30 mg Midodrine (Proamatine) 5 mg PO TID [facility] Last Admin: 06/26/17 06:56 Dose: 5 mg Pantoprazole Sodium (Protonix Ec Tab) 40 mg PO DAILY [facility] Last Admin: 06/26/17 09:37 Dose: 40 mg - Labs Labs: 06/26/17 04:30 06/26/17 04:30 PT 14.7 Seconds (9.8-13.1) H 06/23/17 18:39 INR 1.3 (0.9-1.2) H 06/23/17 18:39 APTT 25.0 Seconds (25.6-37.1) L 06/23/17 18:39 - Constitutional Appears: No Acute Distress, Chronically Ill - Head Exam Head Exam: NORMAL INSPECTION, NORMOCEPHALIC - Eye Exam Eye Exam: EOMI, Normal appearance Pupil Exam: NORMAL ACCOMODATION - ENT Exam ENT Exam: Mucous Membranes Moist, Normal External Ear Exam - Neck Exam Neck Exam: Full ROM. absent: Meningismus - Respiratory Exam Respiratory Exam: Rales, Rhonchi. absent: Wheezes, Respiratory Distress - Cardiovascular Exam Cardiovascular Exam: REGULAR RHYTHM, +S1, +S2 - GI/Abdominal Exam GI & Abdominal Exam: Soft, Normal Bowel Sounds. absent: Tenderness - Extremities Exam Extremities Exam: Full ROM, Normal Capillary Refill. absent: Calf Tenderness, Pedal Edema - Back Exam Back Exam: Full ROM. absent: CVA tenderness (L), CVA tenderness (R) - Neurological Exam Neurological Exam: Alert, Awake, CN II-XII Intact, Oriented x3 Neuro motor strength exam: Left Upper Extremity: 5, Right Upper Extremity: 5, Left Lower Extremity: 5, Right Lower Extremity: 5 - Psychiatric Exam Psychiatric exam: Normal Affect, Normal Mood - Skin Skin Exam: Dry, Normal Color, Warm Assessment and Plan - Assessment and Plan (Free Text) Assessment: This is a 75 year old male with a pmh of CAD, severe dilated cardiomyopathy with a EF of 15%, s/p AICD placement, DM, HTN, who has been having a productive cough of greenish brown sputum x 1 week, with progressively worsening dyspnea on exertion and lethargy. He felt more short of breath even at rest and so the patient was brought to the ED. In the ED, he was found to be dyspneic although was not hypoxic. His BP was on the low side, high 90's systolic. Laboratory values reveal Hg 10.0, Neutrophil count of 8.1, WBC of 9.7 , Sodium of 129, Cl of 96, BUN of 82, Cr of 2.9 with a GFR of 21. Of note, his previous renal function on 08/31/2016 was BUN/CR 30/1.6 respectively with a GFR of 51. The patient admits to decreased po fluid intake over the past week. BNP is 126388, markedly elevated. Troponin level WNL at 0.0480. Due to his borderline hypotension with concern for sepsis and pneumonia in the setting of severe dilated cardiomyopathy, the patient was admitted to ICU for close monitoring and IV antibiotics. Pt's BP remained low , concern for low CO due to his severe Cardiomyopathy so he was started on Dobutamine drip . 1. Hypotension likely Cardiogenic Shock due to Severe Dilated cardiomyopathy - pt hypotensive - Dobutamine drip started - turned off this am - Nidodrine started - Consultation with Dr. Manzanares for cardiology - EKG shows sinus arrhythmia with nonspecific ST and T wave changes in lateral leads, incomplete LBBB - Holding Multaq for now due to PATRICIA - Holding Coreg and Enalapril due to hypotension; will restart when BP improved - Continue ASA 2) Sepsis ruled , Pneumonia ruled out, cough likely sec to Bronchtis and CHF/ COPD exacerbation -cont Azithromycin/Rocephin - pt has no fever, no ;leukocytosis however with cough - Tylenol PRN for fever - Blood c/s : neg so far 3) Acute COPD exacerbation - Duonebs q6h AT[facility] - Steroids, decrease to 30 mg IVPB q 8 hours - Nasal cannula 2 L PRN 4. DM Type II with hyperglycemia Acuchecks with Regular insulin sliding scale AC+HS - Monitor, alvaro while on steroids - Increase Levemir 15 units qhs\ 5) Acute worsening of preexisting CKD stage III CKD prob due to prerenal azotemia -pt had low BP, also need to r/o Multaq as cause of worsening renal fxn... hold for now - Nephrology consultation 6. CHF acute on chronic systolic and diastolic dysfunction - Lasix prn - hold KARTHIK and Coreg due to hypotension 7. Hyponatremia - monitor - Nephrology consult 6) DVT prophylaxis - Heparin 5000 units TID [facility]
[2017-06-26] MEDS: Azithromycin 500 MG in Sodium Chloride 0.9% 250 ML IVPB SCH (12:34)
[2017-06-26 17:40] LABS: CREATININE, RANDOM URINE 122.6 mg/dL
[2017-06-26] MEDS: Insulin Detemir 100 Units/ml Inj SC SCH (22:32)
[2017-06-27] MEDS: MethylPREDNISolone 40 mg Vial IV SCH ×3 (00:25→16:46)
[2017-06-27] MEDS: Albuterol-Ipratrop 3 mg / 0.5 (3 ml) UD INH SCH ×3 (01:04→13:35)
[2017-06-27 05:34] LABS: HEMOGLOBIN 11.1 g/dL (12.0-18.0); MEAN CELL VOLUME 91.1 fl (80.0-94.0); MEAN CORPUSCULAR HGB CONC 31.9 g/dL (33.0-37.0); RBC 3.83 Mil/uL (4.40-5.90); RED CELL DISTRIBUTION WIDTH 14.4 % (11.5-14.5); WHITE BLOOD COUNT 12.3 K/uL (4.8-10.8)
[2017-06-27 05:55] LABS: ALBUMIN 3.6 g/dL (3.5-5.0); CALCIUM 8.4 mg/dL (8.4-10.2)
[2017-06-27] MEDS: Insulin Lispro (humaLOG) 100 Units/ml Inj SC SCH ×4 (06:38→21:26)
[2017-06-27] MEDS ORDERED: Calcium Gluconate 4.65 mEq/10 ml Inj IV ONE (08:02)
[2017-06-27] MEDS ORDERED: Dextrose 50% SYRINGE Inj (50 ml) IVP ONE (08:02)
[2017-06-27] MEDS ORDERED: Sod Polystyrene Sulf 15 gm/60 ml Susp PO ONE (08:02)
[2017-06-27] MEDS ORDERED: Albuterol-Ipratrop 3 mg / 0.5 (3 ml) UD INH STA (08:02)
--- NOTE | 2017-06-27 08:05 | CP.PCM.PN ---
Subjective - Date & Time of Evaluation Date of Evaluation: 06/27/17 Time of Evaluation: 08:00 - Subjective Subjective: Patient seen and examined bedside. Chronically ill male, pale , with episodes of SOB and de saturating with minimal exertion with O2Sat as low as 80 % while on 3 L O2 via NC Feeling a little better, denies any CP with minimal cough and sputum production No acute issues overnight BP 115/70 HR 89 afebrile Na 130 K 6.2 WBC 12 k Hgb 11 plt 140 k Cl 96 Objective - Vital Signs/Intake and Output Vital Signs (last 24 hours): Temp Pulse Resp BP Pulse Ox 97.5 F L 89 12 115/70 95 06/27/17 04:00 06/27/17 06:00 06/27/17 06:00 06/27/17 06:00 06/27/17 06:00 Intake and Output: 06/27/17 06/27/17 06:59 18:59 Intake Total 50 Output Total 200 Balance -150 - Medications Medications: Current Medications Acetaminophen (Tylenol 325mg Tab) 650 mg PO Q6H PRN PRN Reason: Pain, Mild (1-3) Acetaminophen (Tylenol 325mg Tab) 650 mg PO Q6H PRN PRN Reason: Fever >100.4 F Albuterol/Ipratropium (Duoneb 3 Mg/0.5 Mg (3 Ml) Ud) 3 ml INH Q6H [facility] Last Admin: 06/27/17 01:04 Dose: 3 ml Albuterol/Ipratropium (Duoneb 3 Mg/0.5 Mg (3 Ml) Ud) 3 ml INH STAT STA Stop: 06/27/17 08:03 Aspirin (Ecotrin) 81 mg PO DAILY [facility] Last Admin: 06/26/17 09:36 Dose: 81 mg Calcium Gluconate (Calcium Gluconate) 4.6 meq IV ONCE ONE Stop: 06/27/17 08:03 Dextrose (Dextrose 50% Inj) 50 ml IVP ONCE ONE Stop: 06/27/17 08:03 Heparin Sodium (Porcine) (Heparin) 5,000 units SC Q8 [facility] PRN Reason: Protocol Last Admin: 06/27/17 00:24 Dose: 5,000 units Azithromycin 500 mg/ Sodium (Chloride) 250 mls @ 125 mls/hr IVPB DAILY [facility] Last Admin: 01/02/18 12:34 Dose: 125 mls/hr Ceftriaxone Sodium 1 gm/ (Sodium Chloride) 100 mls @ 100 mls/hr IVPB DAILY [facility] PRN Reason: Protocol Last Admin: 06/26/17 09:38 Dose: 100 mls/hr Dobutamine HCl/Dextrose (Dobutamine/Dextrose 5% 500mg/250ml) 500 mg in 250 mls @ 6.464 mls/hr IV .Q24H [facility]; 2.5 MCG/KG/MIN PRN Reason: Protocol Last Titration: 06/26/17 05:07 Dose: 0 mcg/kg/min, 0 mls/hr Insulin Detemir (Levemir) 16 units SC HS [facility] Last Admin: 06/26/17 22:32 Dose: 16 u Insulin Human Lispro (Humalog) 0 units SC ACHS [facility] PRN Reason: Protocol Last Admin: 06/27/17 06:38 Dose: 2 u Insulin Human Regular (Humulin R) 10 units IV ONCE ONE Stop: 06/28/17 08:03 Loratadine (Claritin) 10 mg PO DAILY [facility] Last Admin: 06/26/17 09:36 Dose: 10 mg Methylprednisolone (Solu-Medrol) 30 mg IV 0100,0900,1700 [facility] Last Admin: 06/27/17 00:25 Dose: 30 mg Midodrine (Proamatine) 5 mg PO TID [facility] Last Admin: 06/26/17 16:41 Dose: 5 mg Pantoprazole Sodium (Protonix Ec Tab) 40 mg PO DAILY [facility] Last Admin: 06/26/17 09:37 Dose: 40 mg Sodium Polystyrene Sulfonate (Kayexalate Susp) 30 gm PO ONCE ONE Stop: 06/27/17 08:03 - Labs Labs: 06/27/17 04:30 06/27/17 04:30 PT 14.7 Seconds (9.8-13.1) H 06/23/17 18:39 INR 1.3 (0.9-1.2) H 06/23/17 18:39 APTT 25.0 Seconds (25.6-37.1) L 06/23/17 18:39 - Constitutional Appears: Non-toxic, Chronically Ill - Head Exam Head Exam: ATRAUMATIC, NORMOCEPHALIC - Eye Exam Eye Exam: EOMI, PERRL Pupil Exam: NORMAL ACCOMODATION - ENT Exam ENT Exam: Normal Exam - Neck Exam Neck Exam: Normal Inspection - Respiratory Exam Respiratory Exam: Accessory Muscle Use, Prolonged Expiratory Phase, Rales ( bibasilar ), Respiratory Distress. absent: Rhonchi, Wheezes - Cardiovascular Exam Cardiovascular Exam: Tachycardia, +S1, +S2. absent: JVD - GI/Abdominal Exam GI & Abdominal Exam: Soft, Normal Bowel Sounds. absent: Distended, Guarding, Tenderness, Rebound - Rectal Exam Rectal Exam: Deferred - Extremities Exam Extremities Exam: absent: Calf Tenderness, Pedal Edema - Back Exam Back Exam: NORMAL INSPECTION - Neurological Exam Neurological Exam: Alert, Awake, CN II-XII Intact, Oriented x3 - Psychiatric Exam Psychiatric exam: Normal Affect - Skin Skin Exam: Dry, Pallor, Warm Assessment and Plan - Assessment and Plan (Free Text) Assessment: 75 year old male with a PMH of CAD, severe dilated cardiomyopathy with a EF of 15%, s/p AICD placement, DM, HTN, who has been having a productive cough of greenish brown sputum x 1 week, with progressively worsening dyspnea on exertion and lethargy. He felt more short of breath even at rest and so the patient was brought to the ED. In the ED, he was found to be dyspneic although was not hypoxic. His BP was on the low side, high 90's systolic. Laboratory values revealed Hg 10.0, Neutrophil count of 8.1, WBC of 9.7, Sodium of 129, Cl of 96, BUN of 82, Cr of 2.9 with a GFR of 21. Of note, his previous renal function on 08/31/2016 was BUN/CR 30/1.6 respectively with a GFR of 51. The patient admits to decreased po fluid intake over the past week. BNP is 501205, markedly elevated. Troponin level WNL at 0.0480. Due to his borderline hypotension with concern for sepsis and pneumonia in the setting of severe dilated cardiomyopathy, patient was admitted to ICU for close monitoring and IV antibiotics. Pt's BP remained low , concern for low CO due to his severe Cardiomyopathy so he was started on Dobutamine drip . CXR showed vascular congestion 1. Hypotension likely Cardiogenic Shock due to Severe Dilated cardiomyopathy hypotensive Was started on Dobutamine drip and now discontinued Midodrine started Consultation with Dr. Manzanares nursery manager appreciated Continue medical management Holding Multaq for now due to PATRICIA Holding Coreg and Enalapril due to hypotension Continue ASA 2.Sepsis ruled , Pneumonia ruled out, cough likely sec to Bronchitis and CHF/ COPD exacerbation cont Azithromycin/Rocephin prophylactically pt has no fever, no ;leukocytosis however with cough CXR showed only vascular congestion Blood c/s : neg so far 3. Acute COPD exacerbation Duonebs Q6h [facility] on Steroids, decreased to 30 mg IVPB q 8 hours Nasal cannula 2 L PRN 4. DM Type II with hyperglycemia Accuchecks with Regular insulin sliding scale AC+HS Monitor, alvaro while on steroids Increased Levemir 15 units qhs 5.PATRICIA on CKD stage III worsening renal function due to hypotension Nephrology consult appreciated 6.CHF acute on chronic systolic and diastolic dysfunction Lasix prn hold KARTHIK and Coreg due to hypotension cardiology on consult low K diet 7. Hyperkalemia K 6.2 Given kayaxalate , D50 , insulin, Duoneb and calcium gluconate 8. Hyponatremia Given Tovalptan Nephrology consult appreciated 9. DVT prophylaxis Heparin 5000 units TID [facility]
[2017-06-27] MEDS ORDERED: Calcium Gluconate 4.6 MEQ in Sodium Chloride 0.9% 100 ML IV ONE (09:00)
[2017-06-27] MEDS ORDERED: Dextrose 50% SYRINGE Inj (50 ml) ONE (09:23)
[2017-06-27] MEDS: Pantoprazole 40 mg EC Tab PO SCH (09:55)
[2017-06-27] MEDS: Azithromycin 500 MG in Sodium Chloride 0.9% 250 ML IVPB SCH (09:58)
[2017-06-27] MEDS ORDERED: Tolvaptan 15 MG TAB PO ONE (10:53)
--- NOTE | 2017-06-27 10:56 | CP.PCM.PN ---
Subjective - Date & Time of Evaluation Date of Evaluation: 06/27/17 Time of Evaluation: 10:54 - Subjective Subjective: Patient sitting up in the chair No nausea or vomiting Serum sodium is still around 129-130 Objective - Vital Signs/Intake and Output Vital Signs (last 24 hours): Temp Pulse Resp BP Pulse Ox 97.4 F L 94 H 18 113/63 85 L 06/27/17 08:00 06/27/17 08:00 06/27/17 08:00 06/27/17 08:00 06/27/17 08:00 Intake and Output: 06/27/17 06/27/17 06:59 18:59 Intake Total 50 100 Output Total 200 Balance -150 100 - Medications Medications: Current Medications Acetaminophen (Tylenol 325mg Tab) 650 mg PO Q6H PRN PRN Reason: Pain, Mild (1-3) Acetaminophen (Tylenol 325mg Tab) 650 mg PO Q6H PRN PRN Reason: Fever >100.4 F Albuterol/Ipratropium (Duoneb 3 Mg/0.5 Mg (3 Ml) Ud) 3 ml INH Q6H [facility] Last Admin: 06/27/17 09:08 Dose: 3 ml Aspirin (Ecotrin) 81 mg PO DAILY [facility] Last Admin: 06/27/17 09:53 Dose: 81 mg Heparin Sodium (Porcine) (Heparin) 5,000 units SC Q8 [facility] PRN Reason: Protocol Last Admin: 06/27/17 09:53 Dose: 5,000 units Azithromycin 500 mg/ Sodium (Chloride) 250 mls @ 125 mls/hr IVPB DAILY [facility] Last Admin: 06/27/17 09:58 Dose: 125 mls/hr Ceftriaxone Sodium 1 gm/ (Sodium Chloride) 100 mls @ 100 mls/hr IVPB DAILY [facility] PRN Reason: Protocol Last Admin: 06/27/17 09:55 Dose: 100 mls/hr Dobutamine HCl/Dextrose (Dobutamine/Dextrose 5% 500mg/250ml) 500 mg in 250 mls @ 6.464 mls/hr IV .Q24H [facility]; 2.5 MCG/KG/MIN PRN Reason: Protocol Last Titration: 06/26/17 05:07 Dose: 0 mcg/kg/min, 0 mls/hr Insulin Detemir (Levemir) 16 units SC HS [facility] Last Admin: 06/26/17 22:32 Dose: 16 u Insulin Human Lispro (Humalog) 0 units SC ACHS [facility] PRN Reason: Protocol Last Admin: 06/27/17 06:38 Dose: 2 u Insulin Human Regular (Humulin R) 10 units IV ONCE ONE Stop: 06/28/17 08:03 Last Admin: 06/27/17 09:59 Dose: 10 units Loratadine (Claritin) 10 mg PO DAILY [facility] Last Admin: 06/26/17 09:36 Dose: 10 mg Methylprednisolone (Solu-Medrol) 30 mg IV 0100,0900,1700 [facility] Last Admin: 06/27/17 09:56 Dose: 30 mg Midodrine (Proamatine) 5 mg PO TID [facility] Last Admin: 06/27/17 09:55 Dose: 5 mg Pantoprazole Sodium (Protonix Ec Tab) 40 mg PO DAILY [facility] Last Admin: 06/27/17 09:55 Dose: 40 mg - Labs Labs: 06/27/17 04:30 06/27/17 04:30 PT 14.7 Seconds (9.8-13.1) H 06/23/17 18:39 INR 1.3 (0.9-1.2) H 06/23/17 18:39 APTT 25.0 Seconds (25.6-37.1) L 06/23/17 18:39 - Constitutional Appears: No Acute Distress - Eye Exam Eye Exam: Conjunctival injection - ENT Exam ENT Exam: Mucous Membranes Moist - Neck Exam Neck Exam: absent: Lymphadenopathy - Respiratory Exam Respiratory Exam: NORMAL BREATHING PATTERN. absent: Chest Wall Tenderness - Cardiovascular Exam Cardiovascular Exam: absent: JVD, Rubs - GI/Abdominal Exam GI & Abdominal Exam: Soft. absent: Guarding - Extremities Exam Extremities Exam: absent: Calf Tenderness - Back Exam Back Exam: absent: CVA tenderness (L), CVA tenderness (R) - Neurological Exam Neurological Exam: Alert - Skin Skin Exam: absent: Cyanosis Assessment and Plan (1) Diabetes mellitus Status: Acute (2) Dilated cardiomyopathy Status: Acute (3) Chronic kidney disease, stage IV (severe) Assessment & Plan: Acute kidney injury superimposed on chronic kidney disease perhaps stage III. Serum creatinine improving however the urine rising #2 hyponatremia we will give Samsca 15 mg today. #3 hyperkalemia patient to be kept on low potassium diet and given Kayexalate. Rule type 4 RTA We will hold serum aldosterone and a minimal abdominal #4 patient is diabetic treatment as noted by the primary team. Status: Acute
--- NOTE | 2017-06-27 12:17 | CARD ---
APPROVED REPORT EKG Measurement Heart [id number] <Conclusion> Sinus rhythm with premature atrial complexes Right axis deviation Pulmonary disease pattern Nonspecific intraventricular conduction delay Nonspecific ST and T wave abnormality Abnormal ECG
--- NOTE | 2017-06-27 13:54 | RAD ---
HISTORY: Follow-up pulmonary congestion COMPARISON: 06/23/2017 FINDINGS: LUNGS: No discrete infiltrates. PLEURA: No significant pleural effusion identified, no pneumothorax apparent. CARDIOVASCULAR: Cardiomegaly. Stable pulmonary vascular congestion. Position/ configuration of pacemaker OSSEOUS STRUCTURES: No significant abnormalities. VISUALIZED UPPER ABDOMEN: Normal. OTHER FINDINGS: None. IMPRESSION: No significant interval change compared to the prior examination(s).
[2017-06-27] MEDS: Insulin Detemir 100 Units/ml Inj SC SCH (21:31)
--- NOTE | 2017-06-27 23:19 | CP.CCUPN ---
CCU Subjective - Physician Review Subjective (Free Text): Awake and alert, tolerated OOB to chair, no overall distress, was on VM oxygen mask in AM, tolerated nasal cannula, denies any chest discomfort, nor any SOB at rest. Off Dobutamine x 24H. Other vitals and I/O's reviewed. In NSR with PACs today AM. No fever spikes, has gained approx 12 lbs since admission, positive fluid balance noted as well. ROS: No other pertinent negs or positives on 10+ system review. PMSFH: All other Nursing and physician documentation reviewed to date; no new pertinent info noted relevant to current medical problems. CXR: (my interp) +PVC still evident as compared to previous films. EKG: sinus with PACs ( my interp), no acute ischemic changes. IMPRESSION / MAJOR PROBLEMS NOW: 1. Decompensated CHF / Cardiomyopathy with hypotension 2. Acute Resp insufficiency 2' #1; possible underlying Tracheobronchitis 3. Acute Hyperkalemia in presence of CKD IV 4. Chronic Hyponatremia 2' CHF/Cardiomyopathy 5. Paroxysmal A fib with controlled VR PLAN: 1. Ongoing cautious diuresis. 2. K diversion / elimination. Check repeat levels. ACEi on hold 3. On Midodrine, may need to be re-dosed for renal insufficiency; i.e start 2.5 mg TID. May be causing excessive reflex tachycardia with HR in 90's. 4. Tolvaptan x 1 dose given today. CCU Objective - Vital Signs / Intake & Output Vital Signs (Last 4 hours): Vital Signs Temp Pulse Resp BP Pulse Ox 06/27/17 22:00 107 H 21 115/70 93 L 06/27/17 20:00 97.5 F L 95 H 15 137/62 96 Intake and Output (Last 8hrs): Intake & Output 06/27/17 06/27/17 06/28/17 14:59 22:59 06:59 Intake Total 600 550 Output Total 102 50 Balance 498 500 Weight 202 lb Intake: Intake, Piggyback 500 50 Oral 100 350 Tube Feeding 100 Free Water Flush 50 Output: Urine 100 50 Urine, Voided 100 50 Stool 2 Other: # Bowel Movements 2 - Physical Exam Head: Positive for: Atraumatic, Normocephalic Pupils: Positive for: PERRL Extroacular Muscles: Positive for: EOMI Conjunctiva: Positive for: Normal. Negative for: Icteric Mouth: Positive for: Moist Mucous Membranes Neck: Positive for: Normal Range of Motion, JVD Respiratory/Chest: Positive for: Decreased Breath Sounds. Negative for: Accessory Muscle Use Cardiovascular: Positive for: Normal S1, S2 Abdomen: Positive for: Normal Bowel Sounds. Negative for: Tenderness, Distention, Mass/Organomegaly Upper Extremity: Positive for: Normal Inspection Lower Extremity: Positive for: Normal Inspection, Edema Neurological: Positive for: GCS=15, CN II-XII Intact, Speech Normal Skin: Positive for: Warm, Dry. Negative for: Rashes Psychiatric: Positive for: Oriented x 3 - Medications Active Medications: Active Medications Generic Name Dose Route Start Last Admin Trade Name Freq PRN Reason Stop Dose Admin Acetaminophen 650 mg 06/23/17 19:51 Tylenol 325mg Tab PO Q6H PRN Pain, Mild (1-3) Acetaminophen 650 mg 06/23/17 19:51 Tylenol 325mg Tab PO Q6H PRN Fever >100.4 F Albuterol/Ipratropium 3 ml 06/23/17 20:15 06/27/17 13:35 Duoneb 3 Mg/0.5 Mg (3 Ml) Ud INH 3 ml Q6H [facility] Administration Aspirin 81 mg 06/24/17 09:00 06/27/17 09:53 Ecotrin PO 81 mg DAILY [facility] Administration Heparin Sodium (Porcine) 5,000 units 06/24/17 01:00 06/27/17 16:47 Heparin SC 5,000 units Q8 [facility] Administration Protocol Azithromycin 500 mg/ Sodium 250 mls @ 125 mls/hr 06/24/17 09:00 06/27/17 09: 58 Chloride IVPB 125 mls/hr DAILY [facility] Administration Ceftriaxone Sodium 1 gm/ 100 mls @ 100 mls/hr 06/24/17 09:00 06/27/17 09:55 Sodium Chloride IVPB 100 mls/hr DAILY [facility] Administration Protocol Dobutamine HCl/Dextrose 500 mg in 250 mls @ 6.464 mls/hr 06/23/17 23:30 06/26 05:07 Dobutamine/Dextrose 5% 500mg/250ml IV 0 mcg/kg/min .Q24H [facility] 0 mls/hr Protocol Titration 2.5 MCG/KG/MIN Insulin Detemir 16 units 06/25/17 11:02 06/27/17 21:31 Levemir SC 16 u HS [facility] Administration Insulin Human Lispro 0 units 06/24/17 16:30 06/27/17 21:26 Humalog SC Not Given ACHS [facility] Protocol Insulin Human Regular 10 units 06/28/17 08:02 06/27/17 09:59 Humulin R IV 06/28/17 08:03 10 units ONCE ONE Administration Loratadine 10 mg 06/24/17 09:00 06/27/17 13:08 Claritin PO 10 mg DAILY [facility] Administration Methylprednisolone 30 mg 06/25/17 11:01 06/27/17 16:46 Solu-Medrol IV 30 mg 0100,0900,1700 [facility] Administration Midodrine 5 mg 06/25/17 17:00 06/27/17 16:47 Proamatine PO 5 mg TID [facility] Administration Pantoprazole Sodium 40 mg 06/24/17 09:00 06/27/17 09:55 Protonix Ec Tab PO 40 mg DAILY [facility] Administration - Patient Studies Lab Studies: Microbiology Studies 06/23/17 18:30 Blood Culture - Preliminary Blood NO GROWTH AFTER 4 DAYS 06/23/17 17:57 Blood Culture - Preliminary Blood NO GROWTH AFTER 4 DAYS Lab Studies 06/27/17 06/27/17 06/27/17 Range/Units 21:17 16:45 12:26 WBC (4.8-10.8) K/uL RBC (4.40-5.90) Mil/uL Hgb (12.0-18.0) g/dL Hct (35.0-51.0) % MCV (80.0-94.0) fl MCH (27.0-31.0) pg MCHC (33.0-37.0) g/dL RDW (11.5-14.5) % Plt Count (130-400) K/uL Sodium (132-148) mmol/l Potassium (3.6-5.0) MMOL/L Chloride (98-107) mmol/L Carbon Dioxide (22-30) mmol/L Anion Gap (10-20) BUN (9-20) mg/dl Creatinine (0.8-1.5) mg/dl Est GFR ( Amer) Est GFR (Non-Af Amer) POC Glucose (mg/dL) 145 H 116 H 92 (65-110) mg/dL Random Glucose (75-110) mg/dL Calcium (8.4-10.2) mg/dL Total Bilirubin (0.2-1.3) mg/dl AST (17-59) U/L ALT (21-72) U/L Alkaline Phosphatase (38-126) U/L Total Protein (6.3-8.2) G/DL Albumin (3.5-5.0) g/dL Globulin (2.2-3.9) gm/dL Albumin/Globulin Ratio (1.0-2.1) PTH Intact Whole Molec (14-64) pg/mL 06/27/17 06/27/17 06/27/17 Range/Units 11:38 04:35 04:30 WBC (4.8-10.8) K/uL RBC (4.40-5.90) Mil/uL Hgb (12.0-18.0) g/dL Hct (35.0-51.0) % MCV (80.0-94.0) fl MCH (27.0-31.0) pg MCHC (33.0-37.0) g/dL RDW (11.5-14.5) % Plt Count (130-400) K/uL Sodium 130 L (132-148) mmol/l Potassium 6.2 H* D (3.6-5.0) MMOL/L Chloride 96 L (98-107) mmol/L Carbon Dioxide 22 (22-30) mmol/L Anion Gap 18 (10-20) BUN 104 H* (9-20) mg/dl Creatinine 2.2 H (0.8-1.5) mg/dl Est GFR ( Amer) 35 Est GFR (Non-Af Amer) 29 POC Glucose (mg/dL) 76 151 H (65-110) mg/dL Random Glucose 149 H (75-110) mg/dL Calcium 8.4 (8.4-10.2) mg/dL Total Bilirubin 0.8 (0.2-1.3) mg/dl AST 53 (17-59) U/L ALT 81 H D (21-72) U/L Alkaline Phosphatase 75 (38-126) U/L Total Protein 7.0 (6.3-8.2) G/DL Albumin 3.6 (3.5-5.0) g/dL Globulin 3.5 (2.2-3.9) gm/dL Albumin/Globulin Ratio 1.0 (1.0-2.1) PTH Intact Whole Molec (14-64) pg/mL 06/27/17 06/26/17 Range/Units 04:30 11:45 WBC 12.3 H (4.8-10.8) K/uL RBC 3.83 L (4.40-5.90) Mil/uL Hgb 11.1 L (12.0-18.0) g/dL Hct 34.9 L (35.0-51.0) % MCV 91.1 (80.0-94.0) fl MCH 29.0 (27.0-31.0) pg MCHC 31.9 L (33.0-37.0) g/dL RDW 14.4 (11.5-14.5) % Plt Count 140 (130-400) K/uL Sodium (132-148) mmol/l Potassium (3.6-5.0) MMOL/L Chloride (98-107) mmol/L Carbon Dioxide (22-30) mmol/L Anion Gap (10-20) BUN (9-20) mg/dl Creatinine (0.8-1.5) mg/dl Est GFR ( Amer) Est GFR (Non-Af Amer) POC Glucose (mg/dL) (65-110) mg/dL Random Glucose (75-110) mg/dL Calcium (8.4-10.2) mg/dL Total Bilirubin (0.2-1.3) mg/dl AST (17-59) U/L ALT (21-72) U/L Alkaline Phosphatase (38-126) U/L Total Protein (6.3-8.2) G/DL Albumin (3.5-5.0) g/dL Globulin (2.2-3.9) gm/dL Albumin/Globulin Ratio (1.0-2.1) PTH Intact Whole Molec 165 H (14-64) pg/mL Laboratory Results - last 24 hr 06/26/17 06/27/17 06/27/17 11:45 04:30 04:30 WBC 12.3 H RBC 3.83 L Hgb 11.1 L Hct 34.9 L MCV 91.1 MCH 29.0 MCHC 31.9 L RDW 14.4 Plt Count 140 Sodium 130 L Potassium 6.2 H* D Chloride 96 L Carbon Dioxide 22 Anion Gap 18 BUN 104 H* Creatinine 2.2 H Est GFR ( Amer) 35 Est GFR (Non-Af Amer) 29 POC Glucose (mg/dL) Random Glucose 149 H Calcium 8.4 Total Bilirubin 0.8 AST 53 ALT 81 H D Alkaline Phosphatase 75 Total Protein 7.0 Albumin 3.6 Globulin 3.5 Albumin/Globulin Ratio 1.0 PTH Intact Whole Molec 165 H 06/27/17 06/27/17 06/27/17 04:35 11:38 12:26 WBC RBC Hgb Hct MCV MCH MCHC RDW Plt Count Sodium Potassium Chloride Carbon Dioxide Anion Gap BUN Creatinine Est GFR ( Amer) Est GFR (Non-Af Amer) POC Glucose (mg/dL) 151 H 76 92 Random Glucose Calcium Total Bilirubin AST ALT Alkaline Phosphatase Total Protein Albumin Globulin Albumin/Globulin Ratio PTH Intact Whole Molec 06/27/17 06/27/17 16:45 21:17 WBC RBC Hgb Hct MCV MCH MCHC RDW Plt Count Sodium Potassium Chloride Carbon Dioxide Anion Gap BUN Creatinine Est GFR ( Amer) Est GFR (Non-Af Amer) POC Glucose (mg/dL) 116 H 145 H Random Glucose Calcium Total Bilirubin AST ALT Alkaline Phosphatase Total Protein Albumin Globulin Albumin/Globulin Ratio PTH Intact Whole Molec Radiology Interpretations (Free Text): See above EKG/Cardiology Studies: See above Fingerstick Blood Sugar Results: 145 Review of Systems - Review of Systems All systems: reviewed and no additional remarkable complaints except (as above) Critical Care Progress Note - Nutrition Nutrition: Nutrition Category Date Time Status Consistent Carbohydrate [DIET] Diets 06/26/17 Breakfast Active
[2017-06-28] MEDS: MethylPREDNISolone 40 mg Vial IV SCH ×2 (00:10→08:55)
[2017-06-28] MEDS: Albuterol-Ipratrop 3 mg / 0.5 (3 ml) UD INH SCH ×4 (01:15→19:30)
[2017-06-28 05:19] LABS: HEMOGLOBIN 11.1 g/dL (12.0-18.0); MEAN CELL VOLUME 91.2 fl (80.0-94.0); MEAN CORPUSCULAR HEMOGLOBIN 28.8 pg (27.0-31.0); MEAN CORPUSCULAR HGB CONC 31.6 g/dL (33.0-37.0); RBC 3.86 Mil/uL (4.40-5.90); RED CELL DISTRIBUTION WIDTH 14.8 % (11.5-14.5); WHITE BLOOD COUNT 10.6 K/uL (4.8-10.8)
[2017-06-28 05:57] LABS: CALCIUM 8.6 mg/dL (8.4-10.2)
[2017-06-28] MEDS: Insulin Lispro (humaLOG) 100 Units/ml Inj SC SCH ×4 (06:29→23:20)
[2017-06-28] MEDS ORDERED: Sod Polystyrene Sulf 15 gm/60 ml Susp PO STA (06:34)
[2017-06-28] MEDS ORDERED: Dextrose 50% SYRINGE Inj (50 ml) IVP STA (06:36)
[2017-06-28] MEDS ORDERED: Insulin Regular 100 units/ml IVP STA (06:36)
[2017-06-28] MEDS ORDERED: Sodium Bicarbonate 7.5% (0.9 MEQ/ML) 50ML INJ IV STA (06:38)
[2017-06-28] MEDS ORDERED: Calcium Gluconate 4.65 mEq/10 ml Inj IV ONE (06:39)
--- NOTE | 2017-06-28 06:40 | CP.PCM.PCO ---
Physician Communication Note - Physician Communication Note Physician Communication Note: Potassium of 6.3
[2017-06-28] MEDS ORDERED: Calcium Gluconate 4.6 MEQ in Sodium Chloride 0.9% 100 ML IV ONE (07:15)
--- NOTE | 2017-06-28 07:29 | CP.CCUPN ---
CCU Subjective - Physician Review Subjective (Free Text): Awake and alert, no overall distress, on nasal cannula, denies any chest discomfort, nor any SOB at rest. Off Dobutamine x 36H. Refusing Kayexalate despite explaining need for it due to elevated K levels. No malignant arrythmias noted. Other vitals and I/O's reviewed. In NSR with PACs today AM. No fever spikes, has gained approx 12 lbs since admission, positive fluid balance noted as well. ROS: No other pertinent negs or positives on 10+ system review. PMSFH: All other Nursing and physician documentation reviewed to date; no new pertinent info noted relevant to current medical problems. IMPRESSION / MAJOR PROBLEMS NOW: 1. Decompensated CHF / Cardiomyopathy with hypotension 2. Acute Resp insufficiency 2' #1; possible underlying Tracheobronchitis 3. Acute Hyperkalemia in presence of CKD IV 4. Chronic Hyponatremia 2' CHF/Cardiomyopathy 5. Paroxysmal A fib with controlled VR PLAN: 1. Will give 24H of alkalinzed fluid for Hyperkalemia.if he refuses PO Kayexalate. Otherwise K diversion / elimination. Check repeat levels. ACEi on hold 2. BUN levels worse, cautious IVFs as above fps the next 24H. 3. On Midodrine, may need to be re-dosed for renal insufficiency; i.e start 2.5 mg TID. May be causing excessive reflex tachycardia with HR in 90's. 4. Tolvaptan x 1 dose given yesterday with slight improveemnt in serum Na. but may be getting more IVFs today. CCU Objective - Vital Signs / Intake & Output Vital Signs (Last 4 hours): Vital Signs Temp Pulse Resp BP Pulse Ox 06/28/17 05:59 101 H 16 95 06/28/17 04:00 98.2 F 91 H 12 113/74 90 L Intake and Output (Last 8hrs): Intake & Output 06/27/17 06/28/17 06/28/17 22:59 06:59 14:59 Intake Total 550 50 Output Total 50 50 Balance 500 0 Intake: Intake, Piggyback 50 0 Oral 350 Tube Feeding 100 50 Free Water Flush 50 Output: Urine 50 50 Urine, Voided 50 50 Other: # Voids Urine, Voided 100 # Bowel Movements 2 - Physical Exam Head: Positive for: Atraumatic, Normocephalic Pupils: Positive for: PERRL Extroacular Muscles: Positive for: EOMI Conjunctiva: Positive for: Normal. Negative for: Icteric Mouth: Positive for: Moist Mucous Membranes Neck: Positive for: Normal Range of Motion, JVD Respiratory/Chest: Positive for: Decreased Breath Sounds. Negative for: Accessory Muscle Use Cardiovascular: Positive for: Normal S1, S2, Irregular Rhythm, Tachycardic Abdomen: Positive for: Normal Bowel Sounds. Negative for: Tenderness, Distention, Mass/Organomegaly Upper Extremity: Positive for: Normal Inspection Lower Extremity: Positive for: Normal Inspection, Edema Neurological: Positive for: GCS=15, CN II-XII Intact, Speech Normal Skin: Positive for: Warm, Dry. Negative for: Rashes Psychiatric: Positive for: Oriented x 3 - Medications Active Medications: Active Medications Generic Name Dose Route Start Last Admin Trade Name Freq PRN Reason Stop Dose Admin Acetaminophen 650 mg 06/23/17 19:51 Tylenol 325mg Tab PO Q6H PRN Pain, Mild (1-3) Acetaminophen 650 mg 06/23/17 19:51 Tylenol 325mg Tab PO Q6H PRN Fever >100.4 F Albuterol/Ipratropium 3 ml 06/23/17 20:15 06/27/17 13:35 Duoneb 3 Mg/0.5 Mg (3 Ml) Ud INH 3 ml Q6H [facility] Administration Aspirin 81 mg 06/24/17 09:00 06/27/17 09:53 Ecotrin PO 81 mg DAILY [facility] Administration Heparin Sodium (Porcine) 5,000 units 06/24/17 01:00 06/28/17 00:09 Heparin SC 5,000 units Q8 [facility] Administration Protocol Azithromycin 500 mg/ Sodium 250 mls @ 125 mls/hr 06/24/17 09:00 06/27/17 09: 58 Chloride IVPB 125 mls/hr DAILY [facility] Administration Ceftriaxone Sodium 1 gm/ 100 mls @ 100 mls/hr 06/24/17 09:00 06/27/17 09:55 Sodium Chloride IVPB 100 mls/hr DAILY [facility] Administration Protocol Dobutamine HCl/Dextrose 500 mg in 250 mls @ 6.464 mls/hr 06/23/17 23:30 06/26 05:07 Dobutamine/Dextrose 5% 500mg/250ml IV 0 mcg/kg/min .Q24H [facility] 0 mls/hr Protocol Titration 2.5 MCG/KG/MIN Calcium Gluconate 4.6 meq/ 109.8924 mls @ 109.892 mls/hr 06/28/17 07:15 06/28 07:21 Sodium Chloride IV 06/28/17 08:14 109.892 mls/hr ONCE ONE Administration Sodium Bicarbonate 100 meq/ 1,100 mls @ 80 mls/hr 06/28/17 07:30 Dextrose IV 06/29/17 07:21 [id number] [facility] Insulin Detemir 16 units 06/25/17 11:02 06/27/17 21:31 Levemir SC 16 u HS [facility] Administration Insulin Human Lispro 0 units 06/24/17 16:30 06/28/17 06:29 Humalog SC 4 u ACHS [facility] Administration Protocol Insulin Human Regular 10 units 06/28/17 08:02 06/27/17 09:59 Humulin R IV 06/28/17 08:03 10 units ONCE ONE Administration Loratadine 10 mg 06/24/17 09:00 06/27/17 13:08 Claritin PO 10 mg DAILY [facility] Administration Methylprednisolone 30 mg 06/25/17 11:01 06/28/17 00:10 Solu-Medrol IV 30 mg 0100,0900,1700 [facility] Administration Midodrine 5 mg 06/25/17 17:00 06/27/17 16:47 Proamatine PO 5 mg TID [facility] Administration Pantoprazole Sodium 40 mg 06/24/17 09:00 06/27/17 09:55 Protonix Ec Tab PO 40 mg DAILY [facility] Administration - Patient Studies Lab Studies: Microbiology Studies 06/23/17 18:30 Blood Culture - Preliminary Blood NO GROWTH AFTER 4 DAYS 06/23/17 17:57 Blood Culture - Preliminary Blood NO GROWTH AFTER 4 DAYS Lab Studies 06/28/17 06/28/17 06/28/17 Range/Units 04:35 04:30 04:30 WBC 10.6 (4.8-10.8) K/uL RBC 3.86 L (4.40-5.90) Mil/uL Hgb 11.1 L (12.0-18.0) g/dL Hct 35.2 (35.0-51.0) % MCV 91.2 (80.0-94.0) fl MCH 28.8 (27.0-31.0) pg MCHC 31.6 L (33.0-37.0) g/dL RDW 14.8 H (11.5-14.5) % Plt Count 128 L (130-400) K/uL Sodium 133 (132-148) mmol/l Potassium 6.3 H* (3.6-5.0) MMOL/L Chloride 97 L (98-107) mmol/L Carbon Dioxide 22 (22-30) mmol/L Anion Gap 20 (10-20) BUN 109 H* (9-20) mg/dl Creatinine 2.2 H (0.8-1.5) mg/dl Est GFR ( Amer) 35 Est GFR (Non-Af Amer) 29 POC Glucose (mg/dL) 211 H (65-110) mg/dL Random Glucose 240 H (75-110) mg/dL Calcium 8.6 (8.4-10.2) mg/dL PTH Intact Whole Molec (14-64) pg/mL 06/27/17 06/27/17 06/27/17 Range/Units 21:17 16:45 12:26 WBC (4.8-10.8) K/uL RBC (4.40-5.90) Mil/uL Hgb (12.0-18.0) g/dL Hct (35.0-51.0) % MCV (80.0-94.0) fl MCH (27.0-31.0) pg MCHC (33.0-37.0) g/dL RDW (11.5-14.5) % Plt Count (130-400) K/uL Sodium (132-148) mmol/l Potassium (3.6-5.0) MMOL/L Chloride (98-107) mmol/L Carbon Dioxide (22-30) mmol/L Anion Gap (10-20) BUN (9-20) mg/dl Creatinine (0.8-1.5) mg/dl Est GFR ( Amer) Est GFR (Non-Af Amer) POC Glucose (mg/dL) 145 H 116 H 92 (65-110) mg/dL Random Glucose (75-110) mg/dL Calcium (8.4-10.2) mg/dL PTH Intact Whole Molec (14-64) pg/mL 06/27/17 06/26/17 Range/Units 11:38 11:45 WBC (4.8-10.8) K/uL RBC (4.40-5.90) Mil/uL Hgb (12.0-18.0) g/dL Hct (35.0-51.0) % MCV (80.0-94.0) fl MCH (27.0-31.0) pg MCHC (33.0-37.0) g/dL RDW (11.5-14.5) % Plt Count (130-400) K/uL Sodium (132-148) mmol/l Potassium (3.6-5.0) MMOL/L Chloride (98-107) mmol/L Carbon Dioxide (22-30) mmol/L Anion Gap (10-20) BUN (9-20) mg/dl Creatinine (0.8-1.5) mg/dl Est GFR ( Amer) Est GFR (Non-Af Amer) POC Glucose (mg/dL) 76 (65-110) mg/dL Random Glucose (75-110) mg/dL Calcium (8.4-10.2) mg/dL PTH Intact Whole Molec 165 H (14-64) pg/mL Laboratory Results - last 24 hr 06/26/17 06/27/17 06/27/17 11:45 11:38 12:26 WBC RBC Hgb Hct MCV MCH MCHC RDW Plt Count Sodium Potassium Chloride Carbon Dioxide Anion Gap BUN Creatinine Est GFR ( Amer) Est GFR (Non-Af Amer) POC Glucose (mg/dL) 76 92 Random Glucose Calcium PTH Intact Whole Molec 165 H 06/27/17 06/27/17 06/28/17 16:45 21:17 04:30 WBC 10.6 RBC 3.86 L Hgb 11.1 L Hct 35.2 MCV 91.2 MCH 28.8 MCHC 31.6 L RDW 14.8 H Plt Count 128 L Sodium Potassium Chloride Carbon Dioxide Anion Gap BUN Creatinine Est GFR ( Amer) Est GFR (Non-Af Amer) POC Glucose (mg/dL) 116 H 145 H Random Glucose Calcium PTH Intact Whole Molec 06/28/17 06/28/17 04:30 04:35 WBC RBC Hgb Hct MCV MCH MCHC RDW Plt Count Sodium 133 Potassium 6.3 H* Chloride 97 L Carbon Dioxide 22 Anion Gap 20 BUN 109 H* Creatinine 2.2 H Est GFR ( Amer) 35 Est GFR (Non-Af Amer) 29 POC Glucose (mg/dL) 211 H Random Glucose 240 H Calcium 8.6 PTH Intact Whole Molec EKG/Cardiology Studies: Cardiology / EKG Studies 06/27/17 07:30 EKG [ELECTROCARDIOGRAM] Routine Comment: Mode Of Transportation: PORTABLE Reason For Exam: follow up A Fib Does Patient Have a Pacemaker?: Yes Fingerstick Blood Sugar Results: 211 Review of Systems - Review of Systems All systems: reviewed and no additional remarkable complaints except (as above) Critical Care Progress Note - Nutrition Nutrition: Nutrition Category Date Time Status Consistent Carbohydrate [DIET] Diets 06/26/17 Breakfast Active
--- NOTE | 2017-06-28 07:48 | CP.PCM.PN ---
Subjective - Date & Time of Evaluation Date of Evaluation: 06/28/17 Time of Evaluation: 07:45 - Subjective Subjective: Patient embedded weight conscious No nausea no vomiting Blood tests reviewed with high potassium Physical exam Vital signs stable Chest clear no significant rales Heart no rubs Abdomen soft Extremity no edema The lab test Serum sodium rising to 133 Potassium rising given Kayexalate stat dose right now patient uncooperative refusing Kayexalate however finally he took it. Serum creatinine about the same consistent with C daily stage IV at this point Again acute kidney injury superimposed on chronic kidney disease. Probably related to cardiorenal syndrome and congestive heart failure. BUNs rising I suggest to cut down the steroids as soon as possible this may cause hypercatabolic state with rising BUN. Objective - Vital Signs/Intake and Output Vital Signs (last 24 hours): Temp Pulse Resp BP Pulse Ox 98.2 F 101 H 16 113/74 95 06/28/17 04:00 06/28/17 05:59 06/28/17 05:59 06/28/17 04:00 06/28/17 05:59 Intake and Output: 06/28/17 06/28/17 06:59 18:59 Intake Total 200 Output Total 50 Balance 150 - Medications Medications: Current Medications Acetaminophen (Tylenol 325mg Tab) 650 mg PO Q6H PRN PRN Reason: Pain, Mild (1-3) Acetaminophen (Tylenol 325mg Tab) 650 mg PO Q6H PRN PRN Reason: Fever >100.4 F Albuterol/Ipratropium (Duoneb 3 Mg/0.5 Mg (3 Ml) Ud) 3 ml INH Q6H [facility] Last Admin: 06/27/17 13:35 Dose: 3 ml Aspirin (Ecotrin) 81 mg PO DAILY [facility] Last Admin: 06/27/17 09:53 Dose: 81 mg Heparin Sodium (Porcine) (Heparin) 5,000 units SC Q8 [facility] PRN Reason: Protocol Last Admin: 06/28/17 00:09 Dose: 5,000 units Azithromycin 500 mg/ Sodium (Chloride) 250 mls @ 125 mls/hr IVPB DAILY [facility] Last Admin: 06/27/17 09:58 Dose: 125 mls/hr Ceftriaxone Sodium 1 gm/ (Sodium Chloride) 100 mls @ 100 mls/hr IVPB DAILY [facility] PRN Reason: Protocol Last Admin: 06/27/17 09:55 Dose: 100 mls/hr Dobutamine HCl/Dextrose (Dobutamine/Dextrose 5% 500mg/250ml) 500 mg in 250 mls @ 6.464 mls/hr IV .Q24H [facility]; 2.5 MCG/KG/MIN PRN Reason: Protocol Last Titration: 06/26/17 05:07 Dose: 0 mcg/kg/min, 0 mls/hr Calcium Gluconate 4.6 meq/ (Sodium Chloride) 109.8924 mls @ 109.892 mls/hr IV ONCE ONE Stop: 06/28/17 08:14 Last Admin: 06/28/17 07:21 Dose: 109.892 mls/hr Sodium Bicarbonate 100 meq/ (Dextrose) 1,100 mls @ 80 mls/hr IV .[id number] [facility] Stop: 06/29/17 07:21 Insulin Detemir (Levemir) 16 units SC HS [facility] Last Admin: 06/27/17 21:31 Dose: 16 u Insulin Human Lispro (Humalog) 0 units SC ACHS [facility] PRN Reason: Protocol Last Admin: 06/28/17 06:29 Dose: 4 u Insulin Human Regular (Humulin R) 10 units IV ONCE ONE Stop: 06/28/17 08:03 Last Admin: 06/27/17 09:59 Dose: 10 units Loratadine (Claritin) 10 mg PO DAILY [facility] Last Admin: 06/27/17 13:08 Dose: 10 mg Methylprednisolone (Solu-Medrol) 30 mg IV 0100,0900,1700 [facility] Last Admin: 06/28/17 00:10 Dose: 30 mg Midodrine (Proamatine) 5 mg PO TID [facility] Last Admin: 06/27/17 16:47 Dose: 5 mg Pantoprazole Sodium (Protonix Ec Tab) 40 mg PO DAILY [facility] Last Admin: 06/27/17 09:55 Dose: 40 mg - Labs Labs: 06/28/17 04:30 06/28/17 04:30 PT 14.7 Seconds (9.8-13.1) H 06/23/17 18:39 INR 1.3 (0.9-1.2) H 06/23/17 18:39 APTT 25.0 Seconds (25.6-37.1) L 06/23/17 18:39 Assessment and Plan (1) Diabetes mellitus Status: Acute (2) Dilated cardiomyopathy Status: Acute (3) Chronic kidney disease, stage IV (severe) Status: Acute
[2017-06-28] MEDS ORDERED: Insulin Regular 100 units/ml IV ONE (08:02)
[2017-06-28] MEDS: Pantoprazole 40 mg EC Tab PO SCH (08:52)
[2017-06-28] MEDS: Azithromycin 500 MG in Sodium Chloride 0.9% 250 ML IVPB SCH (09:55)
--- NOTE | 2017-06-28 09:56 | CP.PCM.PN ---
Subjective - Date & Time of Evaluation Date of Evaluation: 06/28/17 Time of Evaluation: 09:30 - Subjective Subjective: Patient seen and examined bedside. Chronically ill male, lying in bed in NAD , with soft voice,unable to finish full sentences due to SOB. Feeling a little better, pale , with episodes of SOB with minimal exertion. Denies any CP With minimal cough and sputum production No acute issues overnight BP107/78 HR ranging 91-106 saturating 91-96 % on 2 L O2 via NC Na 133 K 6.3 WBC 10 k Hgb 11 plt 128 k BUN/Cr 109/2.2 Objective - Vital Signs/Intake and Output Vital Signs (last 24 hours): Temp Pulse Resp BP Pulse Ox 98.4 F 106 H 26 H 104/78 91 L 06/28/17 08:00 06/28/17 08:00 06/28/17 08:00 06/28/17 08:00 06/28/17 08:00 Intake and Output: 06/28/17 06/28/17 06:59 18:59 Intake Total 200 100 Output Total 50 Balance 150 100 - Medications Medications: Current Medications Acetaminophen (Tylenol 325mg Tab) 650 mg PO Q6H PRN PRN Reason: Pain, Mild (1-3) Acetaminophen (Tylenol 325mg Tab) 650 mg PO Q6H PRN PRN Reason: Fever >100.4 F Albuterol/Ipratropium (Duoneb 3 Mg/0.5 Mg (3 Ml) Ud) 3 ml INH Q6H [facility] Last Admin: 06/28/17 08:22 Dose: 3 ml Aspirin (Ecotrin) 81 mg PO DAILY [facility] Last Admin: 06/28/17 08:52 Dose: 81 mg Heparin Sodium (Porcine) (Heparin) 5,000 units SC Q8 [facility] PRN Reason: Protocol Last Admin: 06/28/17 00:09 Dose: 5,000 units Azithromycin 500 mg/ Sodium (Chloride) 250 mls @ 125 mls/hr IVPB DAILY [facility] Last Admin: 06/27/17 09:58 Dose: 125 mls/hr Ceftriaxone Sodium 1 gm/ (Sodium Chloride) 100 mls @ 100 mls/hr IVPB DAILY [facility] PRN Reason: Protocol Last Admin: 06/28/17 08:57 Dose: 100 mls/hr Dobutamine HCl/Dextrose (Dobutamine/Dextrose 5% 500mg/250ml) 500 mg in 250 mls @ 6.464 mls/hr IV .Q24H [facility]; 2.5 MCG/KG/MIN PRN Reason: Protocol Last Titration: 06/26/17 05:07 Dose: 0 mcg/kg/min, 0 mls/hr Sodium Bicarbonate 100 meq/ (Dextrose) 1,100 mls @ 80 mls/hr IV .[id number] [facility] Stop: 06/29/17 07:21 Insulin Detemir (Levemir) 16 units SC HS [facility] Last Admin: 06/27/17 21:31 Dose: 16 u Insulin Human Lispro (Humalog) 0 units SC ACHS [facility] PRN Reason: Protocol Last Admin: 06/28/17 06:29 Dose: 4 u Loratadine (Claritin) 10 mg PO DAILY [facility] Last Admin: 06/27/17 13:08 Dose: 10 mg Methylprednisolone (Solu-Medrol) 30 mg IV 0100,0900,1700 [facility] Last Admin: 06/28/17 08:55 Dose: 30 mg Midodrine (Proamatine) 5 mg PO TID [facility] Last Admin: 06/28/17 08:54 Dose: 5 mg Pantoprazole Sodium (Protonix Ec Tab) 40 mg PO DAILY [facility] Last Admin: 06/28/17 08:52 Dose: 40 mg - Labs Labs: 06/28/17 04:30 06/28/17 04:30 PT 14.7 Seconds (9.8-13.1) H 06/23/17 18:39 INR 1.3 (0.9-1.2) H 06/23/17 18:39 APTT 25.0 Seconds (25.6-37.1) L 06/23/17 18:39 - Constitutional Appears: Chronically Ill, Other (soft weak voice, pale with dyspnea with minimal exertion ) - Head Exam Head Exam: ATRAUMATIC, NORMOCEPHALIC - Eye Exam Eye Exam: EOMI, PERRL Pupil Exam: NORMAL ACCOMODATION - ENT Exam ENT Exam: Mucous Membranes Moist, Normal Exam - Neck Exam Neck Exam: Normal Inspection - Respiratory Exam Respiratory Exam: Accessory Muscle Use, Prolonged Expiratory Phase, Rales ( bibasilar ). absent: Rhonchi, Wheezes - Cardiovascular Exam Cardiovascular Exam: REGULAR RHYTHM. absent: JVD - GI/Abdominal Exam GI & Abdominal Exam: Soft, Normal Bowel Sounds. absent: Distended, Guarding, Rebound - Rectal Exam Rectal Exam: Deferred - Extremities Exam Extremities Exam: Normal Inspection. absent: Calf Tenderness, Pedal Edema - Back Exam Back Exam: NORMAL INSPECTION - Neurological Exam Neurological Exam: Alert, Awake, CN II-XII Intact - Psychiatric Exam Psychiatric exam: Anxious, Flat Affect - Skin Skin Exam: Dry, Pallor, Warm Assessment and Plan - Assessment and Plan (Free Text) Assessment: 75 year old male with a PMH of CAD, severe dilated cardiomyopathy with a EF of 15%, s/p AICD placement, DM, HTN, who has been having a productive cough of greenish brown sputum x 1 week, with progressively worsening dyspnea on exertion and lethargy, brought to the ED due to worsening SOB . In the ED, he was found to be dyspneic although was not hypoxic. His BP was on the low side , high 90's systolic. Laboratory values revealed Hg 10.0, Neutrophil count of 8.1, WBC of 9.7, Sodium of 129, Cl of 96, BUN of 82, Cr of 2.9 with a GFR of 21. Of note, his previous renal function on 08/31/2016 was BUN/CR 30/1.6 respectively with a GFR of 51. The patient admits to decreased po fluid intake over the past week. BNP is 655575, markedly elevated. Troponin level WNL at 0.0480. Due to his borderline hypotension with concern for sepsis and pneumonia in the setting of severe dilated cardiomyopathy, patient was admitted to ICU for close monitoring and IV antibiotics. Pt's BP remained low , concern for low CO due to his severe Cardiomyopathy so he was started on Dobutamine drip . CXR showed vascular congestion At present off Dobutamine drip, still with significant SOB with minimal exertion 1. Hypotension likely Cardiogenic Shock due to Severe Dilated cardiomyopathy improved Was started on Dobutamine drip and now discontinued Midodrine started Consultation with Dr. Manzanares mixer and blender appreciated Continue medical management Holding Multaq for now due to PATRICIA Holding Coreg and Enalapril due to hypotension Continue ASA 2.Sepsis ruled , Pneumonia ruled out, cough likely sec to Bronchitis and CHF/ COPD exacerbation cont Azithromycin/Rocephin prophylactically pt has no fever, no ;leukocytosis however with cough CXR showed only vascular congestion Blood c/s : neg so far 3. Acute COPD exacerbation Duonebs Q6h ATC on Steroids, decreased to 30 mg IVPB Q12 hours Nasal cannula 2 L PRN 4. DM Type II with hyperglycemia Accuchecks with Regular insulin sliding scale AC+HS Monitor, alvaro while on steroids Increased Levemir 15 units qhs 5.PATRICIA on CKD stage III worsening renal function due to hypotension BUN/Cr 109/2.2 K 6.3 Treated hyperkalemia with kayexalate, D50, insulin , calcium gluconate Nephrology consult appreciated rosina steroids low K diet 6.CHF acute on chronic systolic and diastolic dysfunction Lasix prn hold KARTHIK and Coreg due to hypotension cardiology on consult low K diet 7. Hyperkalemia K 6.2 Given kayaxalate , D50 , insulin, Duoneb and calcium gluconate 8. Hyponatremia Given Tovalptan 1/3 Na 133 today Nephrology consult appreciated 9.Thromobocytopenia monitor for now 10. DVT prophylaxis Heparin 5000 units TID [facility]
--- NOTE | 2017-06-28 11:09 | PQF GENQUE ---
Dr. Epperson, Sepsis ruled in or ruled out? OR: Other explanation of clinical finding 06/26, 06/27 and 06/28: progress note: attending:--- Due to his borderline hypotension with concern for sepsis and pneumonia in the setting of severe dilated cardiomyopathy, patient was admitted to ICU for close monitoring and IV antibiotics. Diagnoses include: 2) Sepsis ruled , Pneumonia ruled out, cough likely sec to Bronchtis and CHF/COPD exacerbation -cont Azithromycin/Rocephin - pt has no fever, no ;leukocytosis however with cough - Tylenol PRN for fever - Blood c/s : neg so far This form is a permanent part of the medical record Clarification of your documentation is requested to better reflect the severity of illness and intensity of treatment of your patient. Indicators present [] Specify: [] [] Specify: [] [] Specify: [] [] Specify: [] Location in the medical record that reflects the above clinical findings: [] Treatment Provided: [] PHYSICIAN'S RESPONSE Sepsis ruled out Based on your medical judgment of the clinical indicators outlined above please clarify the following: [] Practitioner response [] If unable to determine, please check the box, sign and date. Present On Admission (POA) Indicator: [] Present at the time of admission [] Not present at the time of admission [] Clinically Undetermined In responding to this query, please exercise your independent professional judgment. The fact that a question is asked does not imply that any particular answer is desired or expected. Thank you for your clarification on this documentation. If you have any questions please call. * Thank you, Kellen Bowen RN ext. #[phone] [facility]
[2017-06-28] MEDS: Sodium Bicarbonate 8.4% 100 MEQ in Dextrose 5% In Water 1,000 ML IV SCH (11:57)
[2017-06-28] MEDS ORDERED: Albuterol 0.083% Inhal Sol (2.5 mg/3 mL) UD INH ONE (13:47)
--- NOTE | 2017-06-28 14:07 | RAD ---
HISTORY: r/o bowel obstruction COMPARISON: No prior. FINDINGS: BOWEL: The bowel gas pattern is nonspecific. No bowel dilatation. BONES: Within normal limits for the patient's age. OTHER FINDINGS: None. IMPRESSION: Nonobstructive bowel-gas pattern.
[2017-06-28] MEDS ORDERED: methylPREDNISolone 30 MG in Sodium Chloride 0.9% 50 ML IV SCH (21:00)
[2017-06-28] MEDS: MethylPREDNISolone 40 mg Vial IVP SCH (21:02)
[2017-06-28] MEDS: Insulin Detemir 100 Units/ml Inj SC SCH (23:20)
[2017-06-29] MEDS: Sodium Bicarbonate 8.4% 100 MEQ in Dextrose 5% In Water 1,000 ML IV SCH (00:33)
[2017-06-29] MEDS: Albuterol-Ipratrop 3 mg / 0.5 (3 ml) UD INH SCH ×3 (01:20→19:15)
[2017-06-29 05:13] LABS: HEMOGLOBIN 10.5 g/dL (12.0-18.0); MEAN CELL VOLUME 90.7 fl (80.0-94.0); MEAN CORPUSCULAR HEMOGLOBIN 28.9 pg (27.0-31.0); MEAN CORPUSCULAR HGB CONC 31.9 g/dL (33.0-37.0); RBC 3.65 Mil/uL (4.40-5.90); RED CELL DISTRIBUTION WIDTH 14.9 % (11.5-14.5); WHITE BLOOD COUNT 12.6 K/uL (4.8-10.8)
[2017-06-29] MEDS: Insulin Lispro (humaLOG) 100 Units/ml Inj SC SCH ×3 (06:58→17:04)
[2017-06-29] MEDS: MethylPREDNISolone 40 mg Vial IVP SCH ×2 (08:31→21:57)
[2017-06-29] MEDS: Pantoprazole 40 mg EC Tab PO SCH (08:32)
[2017-06-29] MEDS: Azithromycin 500 MG in Sodium Chloride 0.9% 250 ML IVPB SCH (08:33)
--- NOTE | 2017-06-29 10:53 | CP.PCM.PN ---
Subjective - Date & Time of Evaluation Date of Evaluation: 06/29/17 Time of Evaluation: 10:15 - Subjective Subjective: No fever SOB alvaro on exertion sl cough off Dobutamine drip no CP no abd pain Objective - Vital Signs/Intake and Output Vital Signs (last 24 hours): Temp Pulse Resp BP Pulse Ox 97.6 F 105 H 17 128/70 100 06/29/17 08:00 06/29/17 08:00 06/29/17 08:00 06/29/17 08:00 06/29/17 08:00 Intake and Output: 06/29/17 06/29/17 06:59 18:59 Intake Total 960 Output Total 100 Balance 860 - Medications Medications: Current Medications Acetaminophen (Tylenol 325mg Tab) 650 mg PO Q6H PRN PRN Reason: Pain, Mild (1-3) Acetaminophen (Tylenol 325mg Tab) 650 mg PO Q6H PRN PRN Reason: Fever >100.4 F Albuterol/Ipratropium (Duoneb 3 Mg/0.5 Mg (3 Ml) Ud) 3 ml INH Q6H [facility] Last Admin: 06/29/17 07:53 Dose: 3 ml Aspirin (Ecotrin) 81 mg PO DAILY [facility] Last Admin: 06/29/17 08:32 Dose: 81 mg Heparin Sodium (Porcine) (Heparin) 5,000 units SC Q8 [facility] PRN Reason: Protocol Last Admin: 06/29/17 08:32 Dose: 5,000 units Azithromycin 500 mg/ Sodium (Chloride) 250 mls @ 125 mls/hr IVPB DAILY [facility] Last Admin: 06/29/17 08:33 Dose: 125 mls/hr Ceftriaxone Sodium 1 gm/ (Sodium Chloride) 100 mls @ 100 mls/hr IVPB DAILY [facility] PRN Reason: Protocol Last Admin: 06/29/17 08:33 Dose: 100 mls/hr Insulin Detemir (Levemir) 16 units SC HS [facility] Last Admin: 06/28/17 23:20 Dose: 16 u Insulin Human Lispro (Humalog) 0 units SC ACHS [facility] PRN Reason: Protocol Last Admin: 06/29/17 06:58 Dose: 4 u Loratadine (Claritin) 10 mg PO DAILY [facility] Last Admin: 06/29/17 08:32 Dose: 10 mg Methylprednisolone (Solu-Medrol) 30 mg IVP Q12H [facility] Last Admin: 06/29/17 08:31 Dose: 30 mg Pantoprazole Sodium (Protonix Ec Tab) 40 mg PO DAILY [facility] Last Admin: 06/29/17 08:32 Dose: 40 mg - Labs Labs: 06/29/17 04:30 06/29/17 04:30 PT 14.7 Seconds (9.8-13.1) H 06/23/17 18:39 INR 1.3 (0.9-1.2) H 06/23/17 18:39 APTT 25.0 Seconds (25.6-37.1) L 06/23/17 18:39 - Constitutional Appears: No Acute Distress, Chronically Ill - Head Exam Head Exam: NORMAL INSPECTION, NORMOCEPHALIC - Eye Exam Eye Exam: EOMI, Normal appearance Pupil Exam: NORMAL ACCOMODATION - ENT Exam ENT Exam: Mucous Membranes Moist, Normal External Ear Exam - Neck Exam Neck Exam: Full ROM. absent: Meningismus - Respiratory Exam Respiratory Exam: Rales, Rhonchi. absent: Wheezes, Respiratory Distress - Cardiovascular Exam Cardiovascular Exam: REGULAR RHYTHM, +S1, +S2 - GI/Abdominal Exam GI & Abdominal Exam: Soft, Normal Bowel Sounds. absent: Tenderness - Extremities Exam Extremities Exam: Full ROM, Normal Capillary Refill. absent: Calf Tenderness, Pedal Edema periph pulses + DP on Doppler - Back Exam Back Exam: Full ROM. absent: CVA tenderness (L), CVA tenderness (R) - Neurological Exam Neurological Exam: Alert, Awake, CN II-XII Intact, Oriented x3 Neuro motor strength exam: Left Upper Extremity: 5, Right Upper Extremity: 5, Left Lower Extremity: 5, Right Lower Extremity: 5 - Psychiatric Exam Psychiatric exam: Normal Affect, Normal Mood - Skin Skin Exam: Dry, Normal Color, Warm Assessment and Plan - Assessment and Plan (Free Text) Assessment: 75 year old male with a PMH of CAD, severe dilated cardiomyopathy with a EF of 15%, s/p AICD placement, DM, HTN, who has been having a productive cough of greenish brown sputum x 1 week, with progressively worsening dyspnea on exertion and lethargy, brought to the ED due to worsening SOB . In the ED, he was found to be dyspneic although was not hypoxic. His BP was on the low side , high 90's systolic. Laboratory values revealed Hg 10.0, Neutrophil count of 8.1, WBC of 9.7, Sodium of 129, Cl of 96, BUN of 82, Cr of 2.9 with a GFR of 21. Of note, his previous renal function on 08/31/2016 was BUN/CR 30/1.6 respectively with a GFR of 51. The patient admits to decreased po fluid intake over the past week. BNP is 164683, markedly elevated. Troponin level WNL at 0.0480. Due to his borderline hypotension with concern for sepsis and pneumonia in the setting of severe dilated cardiomyopathy, patient was admitted to ICU for close monitoring and IV antibiotics. Pt's BP remained low , concern for low CO due to his severe Cardiomyopathy so he was started on Dobutamine drip . CXR showed vascular congestion At present off Dobutamine drip, still with significant SOB with minimal exertion 1. Hypotension likely Cardiogenic Shock due to Severe Dilated cardiomyopathy improved Was started on Dobutamine drip and now discontinued Midodrine started- now d/c Consultation with Dr. Manzanares billiard table assembler appreciated Continue medical management Holding Multaq for now due to PATRICIA Holding Coreg and Enalapril due to hypotension Continue ASA 2.Sepsis ruled , Pneumonia ruled out, cough likely sec to Bronchitis and CHF/ COPD exacerbation cont Azithromycin/Rocephin prophylactically pt has no fever, no ;leukocytosis however with cough CXR showed only vascular congestion Blood c/s : neg so far 3. Acute COPD exacerbation Duonebs Q6h ATC on Steroids, decreased to 30 mg IVPB Q12 hours Nasal cannula 2 L PRN 4. DM Type II with hyperglycemia Accuchecks with Regular insulin sliding scale AC+HS Monitor, alvaro while on steroids Increased Levemir 15 units qhs 5.PATRICIA on CKD stage III worsening renal function due to hypotension BUN/Cr 109/2.2 K 6.3 Treated hyperkalemia with kayexalate, D50, insulin , calcium gluconate Nephrology consult appreciated taper steroids low K diet 6.CHF acute on chronic systolic and diastolic dysfunction Lasix prn hold KARTHIK and Coreg due to hypotension cardiology on consult low K diet 7. Hyperkalemia K 6.2 Given kayaxalate , D50 , insulin, Duoneb and calcium gluconate 8. Hyponatremia Given Tovalptan every other day as per Dr Pickett Na 129 today Nephrology consult appreciated 9.Thromobocytopenia monitor for now 10. DVT prophylaxis Heparin 5000 units TID [facility]
[2017-06-29] MEDS ORDERED: Tolvaptan 15 MG TAB PO ONE (12:14)
--- NOTE | 2017-06-29 12:20 | CP.PCM.PN ---
Subjective - Date & Time of Evaluation Date of Evaluation: 06/29/17 Time of Evaluation: 12:15 - Subjective Subjective: Patient is in the bed awake . No nausea no vomiting Patient appears to be comfortable and no shortness of breath sitting. Objective - Vital Signs/Intake and Output Vital Signs (last 24 hours): Temp Pulse Resp BP Pulse Ox 97.6 F 105 H 17 128/70 100 06/29/17 08:00 06/29/17 08:00 06/29/17 08:00 06/29/17 08:00 06/29/17 08:00 Intake and Output: 06/29/17 06/29/17 06:59 18:59 Intake Total 960 Output Total 100 Balance 860 - Medications Medications: Current Medications Acetaminophen (Tylenol 325mg Tab) 650 mg PO Q6H PRN PRN Reason: Pain, Mild (1-3) Acetaminophen (Tylenol 325mg Tab) 650 mg PO Q6H PRN PRN Reason: Fever >100.4 F Albuterol/Ipratropium (Duoneb 3 Mg/0.5 Mg (3 Ml) Ud) 3 ml INH Q6H [facility] Last Admin: 06/29/17 07:53 Dose: 3 ml Aspirin (Ecotrin) 81 mg PO DAILY [facility] Last Admin: 06/29/17 08:32 Dose: 81 mg Heparin Sodium (Porcine) (Heparin) 5,000 units SC Q8 [facility] PRN Reason: Protocol Last Admin: 06/29/17 08:32 Dose: 5,000 units Azithromycin 500 mg/ Sodium (Chloride) 250 mls @ 125 mls/hr IVPB DAILY [facility] Last Admin: 06/29/17 08:33 Dose: 125 mls/hr Ceftriaxone Sodium 1 gm/ (Sodium Chloride) 100 mls @ 100 mls/hr IVPB DAILY [facility] PRN Reason: Protocol Last Admin: 06/29/17 08:33 Dose: 100 mls/hr Insulin Detemir (Levemir) 16 units SC HS [facility] Last Admin: 06/28/17 23:20 Dose: 16 u Insulin Human Lispro (Humalog) 0 units SC ACHS [facility] PRN Reason: Protocol Last Admin: 06/29/17 06:58 Dose: 4 u Loratadine (Claritin) 10 mg PO DAILY [facility] Last Admin: 06/29/17 08:32 Dose: 10 mg Methylprednisolone (Solu-Medrol) 30 mg IVP Q12H [facility] Last Admin: 06/29/17 08:31 Dose: 30 mg Pantoprazole Sodium (Protonix Ec Tab) 40 mg PO DAILY [facility] Last Admin: 06/29/17 08:32 Dose: 40 mg Tolvaptan (Samsca) 15 mg PO ONCE ONE Stop: 06/29/17 12:15 - Labs Labs: 06/29/17 04:30 06/29/17 04:30 PT 14.7 Seconds (9.8-13.1) H 06/23/17 18:39 INR 1.3 (0.9-1.2) H 06/23/17 18:39 APTT 25.0 Seconds (25.6-37.1) L 06/23/17 18:39 - Constitutional Appears: No Acute Distress - ENT Exam ENT Exam: Mucous Membranes Moist - Respiratory Exam Respiratory Exam: Rhonchi, NORMAL BREATHING PATTERN - Cardiovascular Exam Cardiovascular Exam: absent: JVD, Rubs - GI/Abdominal Exam GI & Abdominal Exam: Soft, Normal Bowel Sounds. absent: Guarding - Extremities Exam Extremities Exam: absent: Calf Tenderness - Back Exam Back Exam: absent: CVA tenderness (L), CVA tenderness (R) - Neurological Exam Neurological Exam: Alert - Psychiatric Exam Psychiatric exam: Normal Affect - Skin Skin Exam: absent: Cyanosis Assessment and Plan (1) Diabetes mellitus Status: Acute (2) Dilated cardiomyopathy Status: Acute (3) Chronic kidney disease, stage IV (severe) Assessment & Plan: Chronic kidney disease is stage IV with superimposed acute kidney injury related to dilated cardiomyopathy/cardiorenal syndrome. Hyponatremia again serum sodium came down to 129 probably related to the chronic congestive heart failure and congestive cardiomyopathy will give Samsca 15 mg stat now patient may need Samsca every other day perhaps. Hypokalemia and serum potassium 5.3 keep monitoring serum potassium I order serum renin Rule out type IV RTA. Please have the dietitian to see the patient for 2 g potassium diet. Status: Acute
[2017-06-29] MEDS ORDERED: Dextrose 50% SYRINGE Inj (50 ml) ONE (17:28)
[2017-06-29] MEDS ORDERED: Dextrose 50% SYRINGE Inj (50 ml) IVP STA (17:54)
[2017-06-29 19:39] VITALS: O2SAT 100
[2017-06-30] MEDS: Albuterol-Ipratrop 3 mg / 0.5 (3 ml) UD INH SCH ×3 (02:05→13:33)
[2017-06-30 07:50] LABS: MEAN CELL VOLUME 90.3 fl (80.0-94.0); MEAN CORPUSCULAR HEMOGLOBIN 29.4 pg (27.0-31.0); MEAN CORPUSCULAR HGB CONC 32.5 g/dL (33.0-37.0); RBC 3.73 Mil/uL (4.40-5.90); WHITE BLOOD COUNT 17.6 K/uL (4.8-10.8)
[2017-06-30 08:04] LABS: CALCIUM 8.1 mg/dL (8.4-10.2)
[2017-06-30] MEDS ORDERED: MethylPREDNISolone 40 mg Vial IVP SCH (09:00)
[2017-06-30 09:11] VITALS: BP 139/86; PULSE 104; RESP 18; TEMP 97.6
[2017-06-30] MEDS: Pantoprazole 40 mg EC Tab PO SCH (09:53)
--- NOTE | 2017-06-30 11:28 | CP.PCM.PN ---
Objective - Vital Signs/Intake and Output Vital Signs (last 24 hours): Temp Pulse Resp BP Pulse Ox 97.6 F 104 H 18 139/86 100 06/30/17 08:00 06/30/17 08:00 06/30/17 08:00 06/30/17 08:00 06/30/17 08:00 Intake and Output: 06/30/17 06/30/17 06:59 18:59 Intake Total 100 Output Total 150 Balance -50 - Medications Medications: Current Medications Acetaminophen (Tylenol 325mg Tab) 650 mg PO Q6H PRN PRN Reason: Pain, Mild (1-3) Acetaminophen (Tylenol 325mg Tab) 650 mg PO Q6H PRN PRN Reason: Fever >100.4 F Albuterol/Ipratropium (Duoneb 3 Mg/0.5 Mg (3 Ml) Ud) 3 ml INH Q6H [facility] Last Admin: 06/30/17 08:00 Dose: 3 ml Aspirin (Ecotrin) 81 mg PO DAILY [facility] Last Admin: 06/30/17 09:56 Dose: 81 mg Azithromycin 500 mg/ Sodium (Chloride) 250 mls @ 125 mls/hr IVPB DAILY [facility] Last Admin: 06/29/17 08:33 Dose: 125 mls/hr Ceftriaxone Sodium 1 gm/ (Sodium Chloride) 100 mls @ 100 mls/hr IVPB DAILY [facility] PRN Reason: Protocol Last Admin: 06/30/17 09:54 Dose: 100 mls/hr Insulin Human Lispro (Humalog) 0 units SC ACHS [facility] PRN Reason: Protocol Last Admin: 06/29/17 17:04 Dose: Not Given Loratadine (Claritin) 10 mg PO DAILY [facility] Last Admin: 06/30/17 09:53 Dose: 10 mg Methylprednisolone (Solu-Medrol) 40 mg IVP DAILY [facility] Last Admin: 06/30/17 09:55 Dose: 40 mg Pantoprazole Sodium (Protonix Ec Tab) 40 mg PO DAILY [facility] Last Admin: 06/30/17 09:53 Dose: 40 mg - Labs Labs: 06/30/17 06:30 06/30/17 06:30 PT 14.7 Seconds (9.8-13.1) H 06/23/17 18:39 INR 1.3 (0.9-1.2) H 06/23/17 18:39 APTT 25.0 Seconds (25.6-37.1) L 06/23/17 18:39
[2017-06-30] MEDS: Azithromycin 500 MG in Sodium Chloride 0.9% 250 ML IVPB SCH (12:32)
--- NOTE | 2017-06-30 14:44 | PCM.ANES ---
Anesthesia Emergent Intubation - Diagnosis Working Diagnosis:: respiratory arrest/code blue - Pre-Intubation Vital Signs Oxygen Delivery Method: Ambu-Bag Level Of Consciousness: Comatose/Unresponsive - Airway Management Oropharyngeal Area Suctioned: Yes - Method of Intubation Intubation Method: Oral ETT ETT Size: 7.0 Lipline@: 23 Easy: Yes Atramatic: Yes - Intubation Devices Maurisio Blade Size Used: 3 - Placement Confirmation Breath Sounds Present & Equal Bilaterally: Yes Positive EtCO2: Yes Portable CXR: Yes Recommendations: Ventilator (code blue, intubation, +etco2, bs=bl, acls initiated, tx to icu)
[2017-06-30] MEDS ORDERED: DOBUTamine 500mg/250ml D5W 500 MG/250 ML BAG IV SCH (14:45)
--- NOTE | 2017-06-30 16:09 | CP.PCM.PRO ---
Pronouncement of Note - Notifications [employer] Notified: No - Autopsy Autopsy Requested: No
--- NOTE | 2017-06-30 16:12 | CP.PCM.PRO ---
Pronouncement of Note - Clinical Findings Physical Exam: No Response Verbal/Painful Stimuli, Absent Peripheral Pulses{ Carotid & Femoral}, Absent Heart & Breath Sounds, Absence of Vital Signs - Pronouncement Time Time of Pronouncement of : 14:55 Additional Comments: Code Blue x 2 , CPR done. Dr Monae spoke with daughter - called off CPR - Notifications Pronouncement Notifications: Family Notified, Atending Notified Shank Rander Notified: No - Autopsy Autopsy Requested: No - [place] [id number]
--- NOTE | 2017-06-30 16:12 | CP.PCM.DIS ---
Provider - Provider Date of Admission: 06/23/17 19:29 Attending physician: Faizan Pelaez DO Primary care physician: DR Alston Consults: Nephrology : Dr Pickett Cardio : Dr Wynne Time Spent in preparation of Discharge (in minutes): 60 Diagnosis - Discharge Diagnosis (1) Cardiac arrest due to underlying cardiac condition Status: Acute (2) Cardiomyopathy Status: Chronic (3) Acute exacerbation of CHF (congestive heart failure) Status: Acute (4) Atrial fibrillation with rapid ventricular response Status: Acute (5) Diabetes mellitus Status: Acute (6) Dilated cardiomyopathy Status: Acute (7) Hyperkalemia Status: Acute (8) Hyponatremia Status: Acute (9) DM2 (diabetes mellitus, type 2) Status: Chronic (10) Cardiogenic shock Status: Acute (11) Acute bronchitis Status: Acute (12) COPD exacerbation Status: Acute Hospital Course - Lab Results Lab Results: Micro Results 06/23/17 18:30 Blood Blood Culture - Final NO GROWTH AFTER 5 DAYS 06/23/17 18:30 Blood Gram Stain - Final TEST NOT PERFORMED 06/23/17 17:57 Blood Blood Culture - Final NO GROWTH AFTER 5 DAYS 06/23/17 17:57 Blood Gram Stain - Final TEST NOT PERFORMED 06/23/17 12:10 Sputum Gram Stain - Final 06/23/17 12:10 Sputum Sputum Culture - Final NORMAL ORAL ALYCIA 06/23/17 06:00 Naris MRSA Culture (Admit) - Final MRSA NOT DETECTED Most Recent Lab Values WBC 17.6 K/uL (4.8-10.8) H 06/30/17 06:30 RBC 3.73 Mil/uL (4.40-5.90) L 06/30/17 06:30 Hgb 11.0 g/dL (12.0-18.0) L 06/30/17 06:30 Hct 33.7 % (35.0-51.0) L 06/30/17 06:30 MCV 90.3 fl (80.0-94.0) 06/30/17 06:30 MCH 29.4 pg (27.0-31.0) 06/30/17 06:30 MCHC 32.5 g/dL (33.0-37.0) L 06/30/17 06:30 RDW 15.0 % (11.5-14.5) H 06/30/17 06:30 Plt Count 83 K/uL (130-400) L D 06/30/17 06:30 MPV 11.1 fl (7.2-11.7) 06/25/17 06:00 Neut % (Auto) 91.8 % (50.0-75.0) H 06/25/17 06:00 Lymph % (Auto) 2.6 % (20.0-40.0) L 06/25/17 06:00 Nobles % (Auto) 5.5 % (0.0-10.0) 06/25/17 06:00 Eos % (Auto) 0.0 % (0.0-4.0) 06/25/17 06:00 Baso % (Auto) 0.1 % (0.0-2.0) 06/25/17 06:00 Neut # 8.3 K/uL (1.8-7.0) H 06/25/17 06:00 Lymph # 0.2 K/uL (1.0-4.3) L 06/25/17 06:00 Nobles # 0.5 K/uL (0.0-0.8) 06/25/17 06:00 Eos # 0.0 K/uL (0.0-0.7) 06/25/17 06:00 Baso # 0.0 K/uL (0.0-0.2) 06/25/17 06:00 Neutrophils % (Manual) 90 % (42-75) H 06/25/17 06:00 Band Neutrophils % 2 % (0-2) 06/25/17 06:00 Lymphocytes % (Manual) 1 % (20-50) L 06/25/17 06:00 Monocytes % (Manual) 7 % (0-10) 06/25/17 06:00 Platelet Estimate Normal (NORMAL) 06/25/17 06:00 Large Platelets Present 06/25/17 06:00 Polychromasia Slight 06/23/17 18:39 Hypochromasia (manual) Slight 06/25/17 06:00 Target Cells Slight 06/23/17 18:39 Tear Drop Cells Slight 06/25/17 06:00 Ovalocytes Slight 06/25/17 06:00 Schistocytes Slight 06/25/17 06:00 PT 14.7 Seconds (9.8-13.1) H 06/23/17 18:39 INR 1.3 (0.9-1.2) H 06/23/17 18:39 APTT 25.0 Seconds (25.6-37.1) L 06/23/17 18:39 pCO2 35 mm/Hg (35-45) 06/23/17 17:39 pO2 81 mm/Hg (80-100) 06/23/17 17:39 HCO3 23.8 mmol/L (21-28) 06/23/17 17:39 ABG pH 7.42 (7.35-7.45) 06/23/17 17:39 ABG Total CO2 23.8 mmol/L (22-28) 06/23/17 17:39 ABG O2 Saturation 100.3 % (95-98) H 06/23/17 17:39 ABG Base Excess -1.4 mmol/L (-2.0-3.0) 06/23/17 17:39 Babak Test Yes 06/23/17 17:39 ABG Potassium 5.0 mmol/L (3.6-5.2) 06/23/17 17:39 A-a O2 Difference 25.0 mm/Hg 06/23/17 17:39 Sodium 128.0 mmol/L (132-148) L 06/23/17 17:39 Chloride 99.0 mmol/L (98-107) 06/23/17 17:39 Glucose 199 mg/dL (75-110) H 06/23/17 17:39 Lactate 1.6 mmol/L (0.7-2.1) 06/23/17 17:39 FiO2 21.0 % 06/23/17 17:39 Sodium 128 mmol/l (132-148) L 06/30/17 06:30 Potassium 5.2 MMOL/L (3.6-5.0) H 06/30/17 06:30 Chloride 90 mmol/L (98-107) L 06/30/17 06:30 Carbon Dioxide 24 mmol/L (22-30) 06/30/17 06:30 Anion Gap 19 (10-20) 06/30/17 06:30 BUN 119 mg/dl (9-20) H* 06/30/17 06:30 Creatinine 3.2 mg/dl (0.8-1.5) H 06/30/17 06:30 Est GFR ( Amer) 23 06/30/17 06:30 Est GFR (Non-Af Amer) 19 06/30/17 06:30 POC Glucose (mg/dL) 123 mg/dL (65-110) H 06/30/17 14:14 Random Glucose 93 mg/dL (75-110) 06/30/17 06:30 Calcium 8.1 mg/dL (8.4-10.2) L 06/30/17 06:30 Phosphorus 3.9 mg/dl (2.5-4.5) 06/26/17 11:45 Magnesium 2.6 MG/DL (1.6-2.3) H 06/25/17 11:04 Total Bilirubin 0.8 mg/dl (0.2-1.3) 06/27/17 04:30 AST 53 U/L (17-59) 06/27/17 04:30 ALT 81 U/L (21-72) H D 06/27/17 04:30 Alkaline Phosphatase 75 U/L (38-126) 06/27/17 04:30 Troponin I 0.0250 ng/mL (0.00-0.120) 06/24/17 10:30 NT-Pro-B Natriuret Pep 94301 pg/ml (0-900) H 06/25/17 06:00 Total Protein 7.0 G/DL (6.3-8.2) 06/27/17 04:30 Albumin 3.6 g/dL (3.5-5.0) 06/27/17 04:30 Globulin 3.5 gm/dL (2.2-3.9) 06/27/17 04:30 Albumin/Globulin Ratio 1.0 (1.0-2.1) 06/27/17 04:30 PTH Intact Whole Molec 165 pg/mL (14-64) H 06/26/17 11:45 Arterial Blood Potassium 5.0 mmol/L (3.6-5.2) 06/23/17 17:39 Urine Color Yellow (YELLOW) 06/25/17 18:38 Urine Clarity Slighty-cloudy (Clear) 06/25/17 18:38 Urine pH 5.0 (5.0-8.0) 06/25/17 18:38 Ur Specific [place] 1.011 (1.003-1.030) 06/25/17 18:38 Urine Protein Negative mg/dL (NEGATIVE) 06/25/17 18:38 Urine Glucose (UA) Neg mg/dL (Normal) 06/25/17 18:38 Urine Ketones Negative mg/dL (NEGATIVE) 06/25/17 18:38 Urine Blood Negative (NEGATIVE) 06/25/17 18:38 Urine Nitrate Negative (NEGATIVE) 06/25/17 18:38 Urine Bilirubin Negative (NEGATIVE) 06/25/17 18:38 Urine Urobilinogen 2.0 mg/dL (0.2-1.0) 06/25/17 18:38 Ur Leukocyte Esterase Trace Casa/uL (Negative) 06/25/17 18:38 Urine RBC (Auto) 1 /hpf (0-3) 06/25/17 18:38 Urine Microscopic WBC 2 /hpf (0-5) 06/25/17 18:38 Ur Squamous Epith Cells 1 /hpf (0-5) 06/25/17 18:38 Hyaline Casts 6-10 /hpf (0-2) H 06/25/17 18:38 Ur Random Creatinine 122.6 mg/dL 06/26/17 17:16 U Random Total Protein 21.0 mg/dL (0.0-12.0) H 06/26/17 17:16 Influenza Typ A,B (EIA) Negative for flu a/b (NEGATIVE) 06/23/17 19:09 Blood Type O POSITIVE 06/23/17 17:57 Antibody Screen Negative 06/23/17 17:57 BBK History Checked Patient has bt 06/23/17 17:57 - Hospital Course Hospital Course: 75 year old male with a PMH of CAD, severe dilated cardiomyopathy with a EF of 15%, s/p AICD placement, DM, HTN, who has been having a productive cough of greenish brown sputum x 1 week, with progressively worsening dyspnea on exertion and lethargy, brought to the ED due to worsening SOB . In the ED, he was found to be dyspneic although was not hypoxic. His BP was on the low side , high 90's systolic. Laboratory values revealed Hg 10.0, Neutrophil count of 8.1, WBC of 9.7, Sodium of 129, Cl of 96, BUN of 82, Cr of 2.9 with a GFR of 21. Of note, his previous renal function on 08/31/2016 was BUN/CR 30/1.6 respectively with a GFR of 51. The patient admits to decreased po fluid intake over the past week. BNP is 410007, markedly elevated. Troponin level WNL at 0.0480. Due to his borderline hypotension with concern for sepsis and pneumonia in the setting of severe dilated cardiomyopathy, patient was admitted to ICU for close monitoring and IV antibiotics. Pt's BP remained low , concern for low CO due to his severe Cardiomyopathy so he was started on Dobutamine drip . CXR showed vascular congestion Pt's condition improved and pt transferred to Telemetry . On 06/30 at around 1405 - pt was found unresponsive with no VS. Code Blue called. Pt was intubated and resuscitated and regained pulse after CPR and 2 He was transferred to ICU. In the ICU pt again Coded - CPR and 3 Epinephrines, and despite resuscitative measures , at 1455. 1. Cardiac Arrest likely due to Severe Dilated cardiomyopathy, prob due to Atherosclerotic Heart Dis Pt had severe LV Dysfunction hx of AICD Pt coded x 2 - CPR done , despite resuscitative measures 2. Cardiogenic Shock pt was admitted to ICU in Cardiogenic Shock, low BP started on Dobutamine drip Cardio consulted 3 .Sepsis ruled , Pneumonia ruled out, cough likely sec to Bronchitis and CHF/ COPD exacerbation cont Azithromycin/Rocephin prophylactically pt has no fever, no ;leukocytosis however with cough CXR showed only vascular congestion Blood c/s : neg so far 4. Acute COPD exacerbation Duonebs Q6h ATC on Steroids, decreased to 30 mg IVPB Q12 hours Nasal cannula 2 L PRN 5. DM Type II with hyperglycemia Accuchecks with Regular insulin sliding scale AC+HS Monitor, alvaro while on steroids d/c Levemir due to low glucose due to poor appetite 6. PATRICIA on CKD stage III with Hyperkalemia worsening renal function due to hypotension BUN/Cr 109/2.2 K 6.3 Treated hyperkalemia with kayexalate, D50, insulin , calcium gluconate Nephrology consult low K diet 7.CHF acute on chronic systolic and diastolic dysfunction Lasix prn hold KARTHIK and Coreg due to hypotension cardiology on consult low K diet 8. Hyponatremia Given Tovalptan every other day as per Dr Pickett Nephrology consult appreciated 9.Thromobocytopenia monitor for now Platelet 83 10. DVT prophylaxis Heparin 5000 units TID SC Discharge Exam - Head Exam Additional comments: Pt Discharge Plan - Follow Up Plan Condition: Disposition: WITH WITHOUT AUTOPSY
--- NOTE | 2017-06-30 18:12 | CARD ---
APPROVED REPORT EKG Measurement Heart [id number] NC 266P [id number] <Conclusion> AV dual-paced rhythm with prolonged AV conduction Abnormal ECG
--- NOTE | 2017-07-02 09:54 | RAD ---
HISTORY: Respiratory distress COMPARISON: 06/27/2017 FINDINGS: LUNGS: There appears to be increased alveolar haziness, greater on the left. An element of vascular congestion or hypo inflation would be included in the differential diagnosis. Patient is now intubated. Endotracheal tube is noted in the mid trachea. Heart is enlarged. A pacemaker is unchanged. Density at the left lung base probably suggest an element of atelectasis and/or small amount of pleural fluid. . PLEURA: No pneumothorax. CARDIOVASCULAR: Cardiomegaly OSSEOUS STRUCTURES: No significant abnormalities. VISUALIZED UPPER ABDOMEN: Normal. OTHER FINDINGS: None. IMPRESSION: Cardiomegaly. Status post intubation. Endotracheal tube in adequate position. New density at the left lung base suggesting subsegmental atelectasis. Mild haziness may suggest some mild increased vascularity or volume loss.
--- NOTE | 2017-07-02 16:39 | PN ---
PROCEDURE DATE: 06/30/2017 CARDIOPULMONARY RESUSCIATION NOTE This is a 76-year-old male with history significant for diabetes mellitus type 2, hypertension, severe dilated cardiomyopathy with EF of 15%, status post AICD placement, transferred out from ICU after having given dobutamine for a couple of days. Patient was noted to be weak with dyspnea at rest and on exertion. BNP was elevated in the 241,000. Patient was noted to become unresponsive with no pulse. Code blue was called. Patient's cardiopulmonary resuscitation was initiated. Patient was intubated, continued on CPR. After 3 rounds of epinephrine, patient was resuscitated with ROSC, transferred to ICU. Patient was started on Dobutrex drip. The patient was again coded with no pulse. CPR was initiated, continued for 10 minutes. After discussion with family and as per family's request, CPR was discontinued. Patient was pronounced . Reported to the daughter, who was at the bedside and also informed the primary physician. Organ donation was notified. ME was not notified due to the patient's chronic critically ill condition and being in the hospital for more than a week. Uri Monae MD
== END 2017-06-30 14:55 | DRG 314 ==
LOC: H.ER 17:22 → H.ERHOLD 19:29 → H.ICU/CCU 20:48 → H.TEL 06-29 20:00 → H.ICU/CCU 06-30 14:20
PROVIDERS: ADMIT Internal Medicine; ATTEND Internal Medicine
PROC: 06HM33Z Insertion of Infusion Device into Right Femoral Vein, Percutaneous Approach (ICD-10-PCS; 2017-06-23)
PROC: 0BH17EZ Insertion of Endotracheal Airway into Trachea, Via Natural or Artificial Opening (ICD-10-PCS; principal; 2017-06-30)
PROC: 5A1935Z Respiratory Ventilation, Less than 24 Consecutive Hours (ICD-10-PCS; 2017-06-30)
DX: I42.0 Dilated cardiomyopathy (principal); I50.43 Acute on chronic combined systolic (congestive) and diastolic (congestive) heart failure; R57.0 Cardiogenic shock; N18.4 Chronic kidney disease, stage 4 (severe); N17.9 Acute kidney failure, unspecified; E87.1 Hypo-osmolality and hyponatremia; I95.89 Other hypotension; E11.22 Type 2 diabetes mellitus with diabetic chronic kidney disease; E11.65 Type 2 diabetes mellitus with hyperglycemia; I13.0 Hypertensive heart and chronic kidney disease with heart failure and stage 1 through stage 4 chronic kidney disease, or unspecified chronic kidney disease; J44.1 Chronic obstructive pulmonary disease with (acute) exacerbation; J44.0 Chronic obstructive pulmonary disease with (acute) lower respiratory infection; E87.5 Hyperkalemia; D64.9 Anemia, unspecified; E78.00 Pure hypercholesterolemia, unspecified; E78.5 Hyperlipidemia, unspecified; I25.10 Atherosclerotic heart disease of native coronary artery without angina pectoris; I44.7 Left bundle-branch block, unspecified; I48.0 Paroxysmal atrial fibrillation; J20.9 Acute bronchitis, unspecified; Z79.4 Long term (current) use of insulin; Z79.82 Long term (current) use of aspirin; Z79.899 Other long term (current) drug therapy; Z87.891 Personal history of nicotine dependence; Z95.810 Presence of automatic (implantable) cardiac defibrillator; Z79.84 Long term (current) use of oral hypoglycemic drugs; R06.03 Acute respiratory distress; R09.89 Other specified symptoms and signs involving the circulatory and respiratory systems; R79.89 Other specified abnormal findings of blood chemistry